=== PATIENT | female | born 1960 | race Caucasian/White ===

== ENCOUNTER 2016-12-04 16:30 | Emergency (ER) | payer OTHER, MEDICARE ==
[~2016-12-04] VITALS: Ht 172.7 cm; Wt 70.3 kg
[~2016-12-04 16:30] MED LIST: ABILIFY 2MG2 MG PO; AUGMENTIN 875 M1 TAB PO; CEPHALEXIN500 M1 PO; CIPRO 500MG (E500 MG PO; DOXYCYCLINE HY100 M2 PO; HYDROXYZINE HCL25 M2 PO; LINDANE60 M1; LINDANE60 M1 TOP; LITHIUM CARBON300 M3 PO; MEDROL4 M2 PO; MOTRIN800 MG PO; NAPROXEN500 M1 PO; NEURONTIN300 M1 PO; PANTOPRAZOLE SO40 M1 PO; PANTOPRAZOLE SO40 MG PO; PERCOCET 325 MG1 TA2 PO; PERMETHRIN60 GM TOP; PROPRANOLOL HCL10 MG PO; PROPRANOLOL HCL20 M1 PO; QUETIAPINE FUMA25 MG PO; SEROQUEL25 M1 PO; TOPIRAMATE100 MG PO; TOPIRAMATE50 M1 PO; TRAMADOL50 MG PO; TYLENOL #31 TAB PO; VICODIN5-300 PO; ZOFRAN ODT4 MG PO; ZOLOFT100 M1 PO
--- NOTE | 2016-12-04 16:51 | ED INFLUENZA/URI COMPLAINT ---
History of Present Illness General Chief Complaint: Upper Respiratory Sx/Fever Stated Complaint: FLU SYMPTOMS Source: patient Exam Limitations: no limitations Vital Signs & Intake/Output Vital Signs & Intake/Output Vital Signs Date Time Temp Pulse Resp B/P Pulse O2 O2 Flow FiO2 Ox Delivery Rate 12/04 1738 98.6 98 18 130/70 98 Room Air 12/04 1653 98 Room Air 12/04 1635 98.5 110 16 138/96 97 Room Air Allergies Coded Allergies: buspirone (From BUSPAR) (Intermediate, PER PT UNKNOWN STATES DOES NOT EXPERIENCE DYSPNEA 10/07/16) Reconcile Medications Aripiprazole 2 MG TABLET 0.25 TAB PO DAILY MENTAL HEALTH (Reported) Azithromycin (Zithromax) 250 MG TABLET 1 DP PO AD bronchitis 1 tab daily x 4 days Clonidine HCl 0.1 MG TABLET 1 TAB PO TID PRN UNKNOWN (Reported) Diphenhydramine HCl 25 MG CAPSULE 1-2 CAP PO AD ALLERGIES/SLEEP (Reported) Guaifen/Phenyleph/Acetaminophn (Mucinex Fast-Max Cold-Sinus Tb) 200 MG-5 MG-325 MG TABLET 2 CAP PO Q4H PRN COLD & SINUS (Reported) Ibuprofen 600 MG TABLET 1 TAB PO Q6 PRN PAIN with food Methimazole 10 MG TABLET 1 TAB PO DAILY THYROID (Reported) Neomycn/Baci Zn/Pmyx Bs/Pramox (Triple Antibioti-Pain Rlf Oint) 3.5-10K-10 OINT...G. 1 BENJAMIN TOP AD AFFECTED AREA(S) (Reported) Pantoprazole Sodium 40 MG TABLET.DR 1 TAB PO DAILY GI (Reported) Propranolol HCl 20 MG TABLET 1 TAB PO BID THYROID (Reported) Quetiapine Fumarate 200 MG TABLET 1 TAB PO QPM SLEEP HELP (Reported) Quetiapine Fumarate (Seroquel) 50 MG TABLET 0.5-1 TAB PO TID PRN MENTAL HEALTH (Reported) Topiramate 50 MG TABLET 1 TAB PO TID MIGRAINES (Reported) Triage Note: PT STATES SHE HAS FLU LIKE S/S SINCE YESTERDAY. PT STATES SHE HAS ACHES, COLD AND SORE THROAT AND IS FEELING DIZZY Triage Nurses Notes Reviewed? yes Onset: Abrupt Duration: day(s): (2) Timing: multiple episodes today Severity: moderate No Modifying Factors: none Associated Symptoms: cough, sore throat, BODY PAIN, DYSPNEA HPI: This is a 56-year-old female presents to the ER with chief complaint of congestion, sore throat, cough, body aches and pains for the past 2 days. She states she was also moving and states that her back pain may be secondary to that. Denies any fevers. She is a daily smoker. Didn't is unsure about sick contacts. She took some [id number] allergy medications without any relief. She is coughing up green sputum. Past History Travel History Traveled to [place] past 21 day No Medical History Any Pertinent Medical History? 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 No Review of Systems Review of Systems Constitutional: Reports: chills. Denies: fever. EENTM: Reports: no symptoms. Respiratory: Reports: cough, sputum production. Denies: short of breath. Cardiovascular: Denies: chest pain, palpitations. GI: Reports: no symptoms. Genitourinary: Reports: no symptoms. Musculoskeletal: Reports: back pain, muscle pain. Skin: Reports: no symptoms. Neurological/Psychological: Reports: no symptoms. Hematologic/Endocrine: Denies: bruising, bleeding, polyuria, polydipsia. Immunologic/Allergic: Denies: splenectomy. All Other Systems: Reviewed and Negative Physical Exam Physical Exam General Appearance: well developed/nourished, alert, awake Head: atraumatic, normal appearance Eyes: Bilateral: normal appearance, PERRL, EOMI. Ears, Nose, Throat: moist mucous membrane, hearing grossly normal, Tympanic normal, pharyngeal erythema Neck: normal inspection, supple, full range of motion Respiratory: normal breath sounds, chest non-tender Cardiovascular: regular rate/rhythm Peripheral Pulses: 2+ radial (R), 2+ radial (L) Gastrointestinal: soft Neurologic/Psych: no motor/sensory deficits, awake, alert, oriented x 3 Skin: intact, normal color, warm/dry Core Measures Severe Sepsis Present: No Septic Shock Present: No Progress Differential Diagnosis: influenza, pneumonia, pharyngitis Plan of Care: Orders Procedure Date/time Status THROAT CULTURE W/QUICK STREP 12/04 1657 Active URINALYSIS 12/04 164 Complete RAPID VIRAL INFLUENZA A 12/04 1638 Complete Laboratory Tests 12/04/16 1648: Urinalysis LIGHT H, Urine Color YEL, Urine Clarity HAZY H, Urine pH 6.5, Ur Specific [place] 1.010, Urine Protein NEG, Urine Ketones NEG, Urine Nitrite NEG, Urine Bilirubin NEG, Urine Urobilinogen 0.2, Ur Leukocyte Esterase SMALL H, Ur Microscopic SEDIMENT EXAMINED, Urine RBC RARE, Urine WBC 1-3 H, Ur Epithelial Cells MOD H, Urine Mucus FEW, Urine Hemoglobin TRACE-INTACT, Urine Glucose NEG Initial ED EKG: none Departure Departure Time of Disposition: 172 Disposition: HOME OR SELF CARE Condition: Stable Clinical Impression Primary Impression: Bronchitis Referrals: EVI HUERTA,MYL (PCP/Family) Additional Instructions: Take the azithromycin as directed. Motrin as needed for pain/fever. Follow up with your doctor in the office. Stop smoking. Departure Forms: Customer Survey General Discharge Information Prescriptions: Current Visit Scripts Azithromycin (Zithromax) 1 DP PO AD #4 TAB 1 tab daily x 4 days Ibuprofen 1 TAB PO Q6 PRN PAIN #30 TAB with food
[2016-12-04] MEDS ORDERED: ZITHROMAX250 M2 PO (17:28)
[2016-12-04] MEDS ORDERED: IBUPROFEN600 M1 PO (17:28)
[2016-12-04 17:38] VITALS: BP 130/70
== END 2016-12-04 17:39 ==
LOC: ERH 16:30
DX: J40 Bronchitis, not specified as acute or chronic (principal); Z72.0 Tobacco use
CPT/HCPCS: 81001; 87804; 87804-59

== ENCOUNTER 2016-12-08 11:13 | Emergency (ER) | payer OTHER, MEDICARE ==
[~2016-12-08] VITALS: Ht 172.7 cm; Wt 70.3 kg
[~2016-12-08 11:13] MED LIST changes: +IBUPROFEN600 M1 PO; +ZITHROMAX250 M2 PO
[2016-12-08 11:22] VITALS: BP 159/100
[2016-12-08] MEDS ORDERED: SEROQUEL50 M1 PO (12:36)
[2016-12-08] MEDS ORDERED: QUETIAPINE FUM100 M1 PO (12:36)
[2016-12-08] MEDS ORDERED: CLONIDINE HCL0.1 MG PO (12:37)
[2016-12-08] MEDS ORDERED: METHIMAZOLE10 M1 PO (12:38)
[2016-12-08] MEDS ORDERED: ARIPIPRAZOLE2 MG PO (12:38)
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
== END 2016-12-08 13:09 ==
LOC: ERH 11:13
DX: S60.411A Abrasion of left index finger, initial encounter (principal); X58.XXXA Exposure to other specified factors, initial encounter
CPT/HCPCS: 99282

== ENCOUNTER 2016-12-11 15:14 | Emergency (ER) | payer OTHER, MEDICARE ==
[~2016-12-11 15:14] MED LIST changes: +ARIPIPRAZOLE2 MG PO; +CLONIDINE HCL0.1 MG PO; +METHIMAZOLE10 M1 PO; +QUETIAPINE FUM100 M1 PO; +SEROQUEL50 M1 PO
--- NOTE | 2016-12-11 15:28 | ED DYSPNEA/ASTHMA COMPLAINT ---
See Addendum History of Present Illness General Chief Complaint: Psychiatric Related Complaint Stated Complaint: PARANOIA Source: patient, old records, EMS Exam Limitations: no limitations Vital Signs & Intake/Output Vital Signs & Intake/Output Vital Signs Date Time Temp Pulse Resp B/P Pulse O2 O2 Flow FiO2 Ox Delivery Rate 12/11 1730 Room Air 12/11 1552 98.2 100 16 151/95 94 Room Air Allergies Coded Allergies: buspirone (From BUSPAR) (Intermediate, PER PT UNKNOWN STATES DOES NOT EXPERIENCE DYSPNEA 10/07/16) Reconcile Medications Aripiprazole 2 MG TABLET 0.25 TAB PO DAILY MENTAL HEALTH (Reported) Azithromycin (Zithromax) 250 MG TABLET 1 DP PO AD bronchitis 1 tab daily x 4 days Clonidine HCl 0.1 MG TABLET 1 TAB PO TID PRN UNKNOWN (Reported) Diphenhydramine HCl 25 MG CAPSULE 1-2 CAP PO AD ALLERGIES/SLEEP (Reported) Guaifen/Phenyleph/Acetaminophn (Mucinex Fast-Max Cold-Sinus Tb) 200 MG-5 MG-325 MG TABLET 2 CAP PO Q4H PRN COLD & SINUS (Reported) Ibuprofen 600 MG TABLET 1 TAB PO Q6 PRN PAIN with food Methimazole 10 MG TABLET 1 TAB PO DAILY THYROID (Reported) Neomycn/Baci Zn/Pmyx Bs/Pramox (Triple Antibioti-Pain Rlf Oint) 3.5-10K-10 OINT...G. 1 BEN[place]AMIN TOP AD AFFECTED AREA(S) (Reported) Pantoprazole Sodium 40 MG TABLET.DR 1 TAB PO DAILY GI (Reported) Propranolol HCl 20 MG TABLET 1 TAB PO BID THYROID (Reported) Quetiapine Fumarate 200 MG TABLET 1 TAB PO QPM SLEEP HELP (Reported) Quetiapine Fumarate (Seroquel) 50 MG TABLET 0.5-1 TAB PO TID PRN MENTAL HEALTH (Reported) Topiramate 50 MG TABLET 1 TAB PO TID MIGRAINES (Reported) Core Measure Meds Pre-Hospital antibiotics Triage Note: PT BIBA FOR PARANOIA AND +AH/VH. PT CALM AND COOPERATIVE. PER EMS, PT HAS SHINGLES ON HER UPPER LIP. Triage Nurses Notes Reviewed? yes Onset: Just prior to arrival Duration: day(s):, constant, continues in ED Timing: recent history Severity: moderate Activities at Onset: emotional stress Prior Episodes/Possible Cause: unknown cause Associated Symptoms: anxiety, insomnia, loss of appetite LMP (ages 10-50): post menopausal : No Patient currently breastfeeds: No HPI: Patient complains of being depressed and scared of roommate reportedly entering her room. She also has insomnia loss appetite and hears voices. She denies fever chills nausea vomiting diarrhea abdominal pain chest pain chest breath headache dysuria bleeding suicidal ideation homicidal ideation. Past History Medical History Any Pertinent Medical History? 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 No Review of Systems Review of Systems Constitutional: Reports: no symptoms. EENTM: Reports: no symptoms. Respiratory: Reports: no symptoms. Cardiovascular: Reports: no symptoms. GI: Reports: no symptoms. Genitourinary: Reports: no symptoms. Musculoskeletal: Reports: no symptoms. Skin: Reports: see HPI, rash. Neurological/Psychological: Reports: see HPI, anxiety, confusion. Hematologic/Endocrine: Reports: no symptoms. Immunologic/Allergic: Reports: no symptoms. All Other Systems: Reviewed and Negative Physical Exam Physical Exam General Appearance: well developed/nourished, alert, awake, anxious, mild distress Head: atraumatic, normal appearance Eyes: Bilateral: normal appearance, PERRL, EOMI. Ears, Nose, Throat: normal pharynx, normal ENT inspection Neck: normal inspection, supple, full range of motion, no midline tenderness Respiratory: normal breath sounds, chest non-tender, no respiratory distress, quiet respiration, lungs clear Cardiovascular: regular rate/rhythm, normal peripheral pulses, norml femoral pulses equa Peripheral Pulses: 4+ carotid (R), 4+ carotid (L) Gastrointestinal: normal bowel sounds, soft, non-tender, no organomegaly Extremities: normal inspection, normal capillary refill, normal range of motion, no edema Neurologic/Psych: no motor/sensory deficits, awake, alert, oriented x 3, digital production artist II- XII nml as tested Skin: intact, normal color, warm/dry, rash, patches of erythematous rash on skin on upper lip philtrum area Lymphatic: no anterior cervical gee Core Measures ACS in differential dx? No Severe Sepsis Present: No Septic Shock Present: No Progress Differential Diagnosis: psychosis depression Plan of Care: Orders Procedure Date/time Status Regular Diet 12/12 D Active Patient Safety Monitor 12/11 152 Active URINE DRUG SCREEN FOR ER ONLY 12/11 152 Complete URINALYSIS 12/11 152 Complete LITHIUM 12/11 152 Complete ETHANOL 12/11 152 Complete COMPREHENSIVE METABOLIC PANEL 12/11 152 Complete CBC WITHOUT DIFFERENTIAL 12/11 152 Complete ED CRISIS PSYCH CONSULT 12/11 1526 Active Current Medications Sig/Martin Start time Last Medication Dose Stop Time Status Admin Omeprazole 40 MG DAILY AC 12/12 0700 UNVr (Prilosec) 12/12 07 Propranolol HCl 20 MG BID 12/11 220 UNVr (Inderal 20 MG 12/12 1001 Tablet) [place] Carbonate 300 MG 0800,12/11 UNVr ([place] Carbonate) 12/12 2000 Diphenhydramine HCl 25 MG AT BEDTIME PRN 12/11 1800 UNVr (Benadryl) 12/11 180 Ibuprofen 600 MG 4 TIMES/DAY PRN 12/11 1800 UNVr (Motrin) 12/12 220 Topiramate 50 MG TID 12/11 1755 UNVr (Topamax) 12/12 1601 Quetiapine Fumarate 50 MG TID 12/11 1754 UNVr (SEROquel) 12/12 220 Clonidine 0.1 MG TID 12/11 175 UNVr (Catapres) 12/12 220 Laboratory Tests 12/11/16 1610: Urine Opiates Screen < 100.00, Methadone Screen 57, Barbiturate Screen < 60, Ur Phencyclidine Scrn 7.70, Amphetamines Screen < 100, U Benzodiazepines Scrn < 85, Urine Cocaine Screen < 50, Urine Cannabis Screen < 5.00, Urine Color YEL, Urine Clarity CLEAR, Urine pH 6.0, Ur Specific [place] 1.010, Urine Protein NEG, Urine Ketones NEG, Urine Nitrite NEG, Urine Bilirubin NEG, Urine Urobilinogen 0.2, Ur Leukocyte Esterase NEG, Ur Microscopic EXAM NOT REQUIRED, Urine Hemoglobin NEG, Urine Glucose NEG 12/11/16 1541: Anion Gap 9, Estimated GFR 47 L, BUN/Creatinine Ratio 13.3, Glucose 74, Calcium 9.6, Total Bilirubin 0.6, AST 26, ALT 34, Alkaline Phosphatase 229 H, Total Protein 6.7, Albumin 3.9, Globulin 2.8, Albumin/Globulin Ratio 1.4, CBC w Diff NO MAN DIFF REQ, RBC 4.69, MCV 84.4, MCH 27.7, RDW 23.5 H, MPV 8.8, Gran % 62.2 , Lymphocytes % 32.4, Monocytes % 4.0, Eosinophils % 0.2, Basophils % 1.2, Absolute Granulocytes 4.6, Absolute Lymphocytes 2.4, Absolute Monocytes 0.3, Absolute Eosinophils 0, Absolute Basophils 0.1, PUBS MCHC 32.8 L, [place] 0.4 L, Serum Alcohol < 10.0 Initial ED EKG: none Hand-Off Endorsed To: JE HUERTA,ANGÉLICA Prieto Endorsed Time: 1899 Pending: other (re eval in AM, female prison) Departure Departure Disposition: STILL A PATIENT Condition: Stable Clinical Impression Primary Impression: Bipolar disorder Qualifiers: Active/Remission status: currently active Current bipolar episode type: depressed Current episode severity: unspecified Qualified Code: F31.30 - Bipolar disorder, current episode depressed, mild or moderate severity, unspecified Referrals: EVI HUERTA,MYYolette (PCP/Family) Departure Forms: Customer Survey General Discharge Information Critical Care Note Critical Care Note Critical Care Time: non-applicable
[2016-12-11 16:03] LABS: ABSOLUTE BASOPHIL COUNT 0.1 /CUMM (0.0-0.2); ABSOLUTE EOSINOPHIL COUNT 0 /CUMM (0.0-0.7); ABSOLUTE GRANULOCYTE CT 4.6 /CUMM (1.4-6.5); ABSOLUTE LYMPH COUNT 2.4 /CUMM (1.2-3.4); ABSOLUTE MONOCYTE COUNT 0.3 /CUMM (0.10-0.60); BASOPHIL % 1.2 % (0.0-2.0); EOSINOPHIL % 0.2 % (0-5); GRANULOCYTE % 62.2 % (42.2-75.2); HEMATOCRIT 39.6 % (37-47); MEAN CORPUSCULAR HGB 27.7 PG (27.0-31.0); MEAN CORPUSCULAR HGB CONC 32.8 G/DL (33.0-37.0); MEAN CORPUSCULAR VOLUME 84.4 FL (81.0-99.0); MEAN PLATELET VOLUME 8.8 FL (7.4-10.4); PLATELET COUNT 250 /CUMM (130-400); RBC DISTRIBUTION WIDTH 23.5 % (11.5-14.5); RED BLOOD CELL CT 4.69 /CUMM (4.20-5.40); WHITE BLOOD CELL COUNT 7.4 /CUMM (4.8-10.8)
[2016-12-11 16:28] LABS: LITHIUM 0.4 mmol/L (0.6-1.2)
[2016-12-11] MEDS ORDERED: TRIPLE ANTIBIOT28 G1 TOP (16:37)
[2016-12-11] MEDS ORDERED: DIPHENHYDRAMINE25 M4 PO (16:39)
[2016-12-11] MEDS ORDERED: MUCINEX FAST-M1 EA12 PO (16:39)
[2016-12-11] MEDS ORDERED: PANTOPRAZOLE SO40 M1 PO (16:41)
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
[2016-12-12 09:10] VITALS: BP 135/95
== END 2016-12-12 09:12 ==
LOC: ERH 15:14
PROVIDERS: Emergency Medicine
DX: F31.9 Bipolar disorder, unspecified (principal)
CPT/HCPCS: 80307; 81003; G0463; G0480

== ENCOUNTER 2017-02-01 14:33 | Emergency (ER) | payer OTHER, MEDICARE ==
[~2017-02-01 14:33] MED LIST changes: +DIPHENHYDRAMINE25 M4 PO; +MUCINEX FAST-M1 EA12 PO; +TRIPLE ANTIBIOT28 G1 TOP
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
[2017-02-01] MEDS ORDERED: AMOX-CLAV 875-1 EACH PO (17:05)
[2017-02-01] MEDS ORDERED: LITHIUM CARBON300 M6 PO (17:05)
[2017-02-01] MEDS ORDERED: SERTRALINE HCL100 MG PO (17:06)
[2017-02-01] MEDS ORDERED: GABAPENTIN300 M2 PO (17:06)
[2017-02-01] MEDS ORDERED: LOSARTAN POTASS50 M1 PO (17:07)
[2017-02-01] MEDS ORDERED: VITAMIN D2000 UNIT PO (17:07)
[2017-02-01] MEDS ORDERED: MULTIVITAMINS1 EAC9 PO (17:07)
--- NOTE | 2017-02-01 17:13 | RADIOLOGY REPORT ---
EXAMINATION: XR LUMBOSACRAL SPINE CLINICAL INFORMATION: Back pain. COMPARISON: CT 09/15/2015 TECHNIQUE: 4 views of the lumbosacral spine were obtained. FINDINGS: Severe L5-S1 degenerative disc disease. Moderate degenerative disc disease at L3-L4 with an inferior endplate erosion or Schmorl's node of L3 with surrounding sclerosis. Slight L3-L4 retrolisthesis. There is a superior endplate fracture of L1 with slight depression anteriorly which appears chronic due to the presence of sclerosis. IMPRESSION: There is a superior endplate fracture of L1 with mild depression anteriorly which appears chronic. However, this is new when compared with 09/15/2015. Correlate for tenderness in this location. Moderate L3-L4 degenerative disc disease with L3 inferior endplate Schmorl's node or chronic erosion and surrounding sclerosis. Minimal retrolisthesis. Severe L5-S1 degenerative disc disease.
[2017-02-01] MEDS ORDERED: HYDROCODON-ACE1 EAC2 PO (17:40)
[2017-02-01 17:45] VITALS: BP 140/80
== END 2017-02-01 17:49 ==
LOC: ERH 14:33
DX: S32.010A Wedge compression fracture of first lumbar vertebra, initial encounter for closed fracture (principal); V89.2XXA Person injured in unspecified motor-vehicle accident, traffic, initial encounter; W00.0XXA Fall on same level due to ice and snow, initial encounter; Y93.9 Activity, unspecified; Y92.9 Unspecified place or not applicable
CPT/HCPCS: 72110

== ENCOUNTER 2017-02-14 13:17 | Emergency (ER) | payer OTHER, MEDICARE ==
[~2017-02-14] VITALS: Ht 172.7 cm; Wt 72.6 kg
[~2017-02-14 13:17] MED LIST changes: +AMOX-CLAV 875-1 EACH PO; +GABAPENTIN300 M2 PO; +HYDROCODON-ACE1 EAC2 PO; +LITHIUM CARBON300 M6 PO; +LOSARTAN POTASS50 M1 PO; +MULTIVITAMINS1 EAC9 PO; +SERTRALINE HCL100 MG PO; +VITAMIN D2000 UNIT PO
[2017-02-14 13:25] VITALS: BP 169/95
== END 2017-02-14 13:27 | disposition admitted as inpatient to this hospital (09) ==
LOC: ERH 13:17
DX: S60.212A Contusion of left wrist, initial encounter (principal)

== ENCOUNTER 2017-02-28 14:06 | Inpatient (IN) | payer OTHER, MEDICARE ==
[~2017-02-28] VITALS: Ht 167.6 cm; Wt 65.4 kg
--- NOTE | 2017-02-28 14:09 | NUR ---
SECURITY AT BEDSIDE FOR WANDING PT CHANGED INTO BLUE SCRUBS
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
--- NOTE | 2017-02-28 14:25 | NUR ---
YANI MURGUIA AT BEDSIDE
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
--- NOTE | 2017-02-28 14:44 | ED PSYCHIATRIC COMPLAINT ---
History of Present Illness General Chief Complaint: Psychiatric Related Complaint Stated Complaint: PSYCH EVAL Source: patient, old records, EMS, transportation certificate and evaluation in a hospital for psychiatric disablities Exam Limitations: no limitations Vital Signs & Intake/Output Vital Signs & Intake/Output Vital Signs Date Time Temp Pulse Resp B/P B/P Pulse O2 O2 Flow FiO2 Mean Ox Delivery Rate 03/01 1645 98.4 82 16 130/90 97 Room Air 05/ 1630 Room Air / 1459 82 16 130/90 97 Room Air 03/01 1209 96.7 76 16 131/96 97 Room Air 03/01 1159 Room Air 03/01 0921 97.5 82 20 169/99 05/ 0911 97.5 82 20 169/99 99 Room Air / 0630 97.7 78 18 168/96 96 Room Air 02/28 2237 98.4 84 16 136/70 94 Room Air 02/28 2026 Room Air 02/28 1732 98.7 95 20 130/69 94 Room Air Allergies Coded Allergies: buspirone (From Posto7) (Intermediate, PER PT UNKNOWN STATES DOES NOT EXPERIENCE DYSPNEA 10/07/16) Reconcile Medications Amoxicillin/Clavulanate Potass (Amox-Clav 875-125 MG Tablet) 875 MG-125 MG TABLET 1 TAB PO BID ANTIBIOTIC (Reported) Aripiprazole 2 MG TABLET 0.25 TAB PO DAILY MENTAL HEALTH (Reported) Cholecalciferol (Vitamin D3) (Vitamin D) 2,000 UNIT CAPSULE 1 CAP PO DAILY SUPPLEMENT (Reported) Gabapentin 300 MG CAPSULE 1 CAP PO TID ANXIETY (Reported) Poteau Carbonate (Poteau Carbonate ER) 300 MG TABLET.ER 1 TAB PO DAILY MENTAL HEALTH (Reported) Losartan Potassium (Unknown Strength) TABLET (Unknown Dose) UNKNOWN (Reported ) Methimazole 10 MG TABLET 1 TAB PO DAILY THYROID (Reported) Multiple Vitamin (Multivitamins) 1 EACH TABLET 1 TAB PO DAILY SUPPLEMENT ( Reported) Pantoprazole Sodium 40 MG TABLET.DR 1 TAB PO DAILY GI (Reported) Propranolol HCl 20 MG TABLET 1 TAB PO BID THYROID (Reported) Quetiapine Fumarate 100 MG TABLET 1 TAB PO QPM SLEEP (Reported) Quetiapine Fumarate (Seroquel) 50 MG TABLET 1 TAB PO TID MENTAL HEALTH ( Reported) Sertraline HCl 100 MG TABLET 2 TAB PO DAILY MENTAL HEALTH (Reported) Topiramate 50 MG TABLET 1 TAB PO TID MIGRAINES (Reported) Triage Note: PT BIBA FOR PSYCH EVAL. PT SEEN AT [facility] THIS MORNING. 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 PT WAS SEEN AT HER HOME BY [facility] TODAY. PT DENIES SI OR HI. Triage Nurses Notes Reviewed? yes HPI: Patient is a 56-year-old female with past medical history of bipolar disorder brought in by ambulance on a emergency transportation certificate and evaluation in the hospital for psychiatric disabilities form. Patient's delinquency prevention social worker called 911 with concerns that patient is delusional and noncompliant with her medications. Patient reports that she believes that "someone is messing with her". She awoke yesterday with 5 pills scattered in her bed that she did not place there. Patient also reports 10 hours missing from her pocket book when she went to buy coffee today. Patient was changing the locks on her door due to the concern that someone was breaking into her apartment. When she told her delinquency prevention social worker this she reports that her delinquency prevention social worker began arguing with her and then called 911. Patient reports that she has been compliant with her medications. Patient reports she has been clean from alcohol and drugs for the past 4 years. Patient reports that she has been sleeping normally, eating and drinking normally and completing her activities of daily living without a problem. Patient denies suicidal or homicidal ideation. Patient denies hallucinations. (BETO HUYNH) Past History Medical History Any Pertinent Medical History? 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 No (BETO HUYNH) Review of Systems Review of Systems Constitutional: Denies: chills, fever. EENTM: Denies: visual changes. Respiratory: Denies: cough, short of breath. Cardiovascular: Denies: chest pain. GI: Denies: abdominal pain, diarrhea, vomiting. Genitourinary: Reports: no symptoms. Musculoskeletal: Reports: back pain (since back fracture 1.5 months). Neurological/Psychological: Reports: see HPI. Hematologic/Endocrine: Reports: no symptoms. Immunologic/Allergic: Reports: no symptoms. (BETO HUYNH) Physical Exam Physical Exam General Appearance: well developed/nourished, alert, awake Head: atraumatic, normal appearance Eyes: Bilateral: normal appearance, PERRL, EOMI. Ears, Nose, Throat: normal pharynx, normal ENT inspection, hearing grossly normal Neck: normal inspection, supple, full range of motion Respiratory: normal breath sounds, chest non-tender, no respiratory distress, lungs clear Cardiovascular: regular rate/rhythm Gastrointestinal: soft, non-tender Extremities: normal range of motion, no signs of trauma Neurological/Psychiatric: no motor/sensory deficits, awake, alert, calm, slat pickler II- XII nml as tested Thoughts/Hallucinations: paranoid Skin: normal color, warm/dry SAD PERSONS Done? patient not suicidal, crisis consultation obtained (BETO HUYNH) Progress Differential Diagnosis: drug intoxication, drug overdose, drug withdrawal, electrolyte abnormality, IC hem/mass/tumor, mood disorder, personality disorder, psychosis Plan of Care: Orders Procedure Date/time Status Regular Diet 03/01 B Active Patient Safety Monitor 03/01 1324 Active Admit to inpatient psych 03/01 1126 Active Intake & Output 02/28 1502 Active Current Medications Sig/Martin Start time Last Medication Dose Stop Time Status Admin Quetiapine Fumarate 100 MG QPM 03/01 2200 AC (Seroquel) Aripiprazole 0.5 MG DAILY 03/01 1000 CAN (Abilify) Gabapentin 300 MG TID 03/01 1000 UNVr 03/01 (Neurontin) 1628 Poteau Carbonate 300 MG DAILY 03/01 1000 UNVr 03/01 (Lithobid Slow 0921 Release) Multivitamins 1 TAB DAILY 03/01 1000 AC Therapeutic (Theragran-M Vitamins Tabs) Propranolol HCl 20 MG BID 03/01 1000 AC 03/01 (Inderal 20 MG 0921 Tablet) Quetiapine Fumarate 50 MG TID 03/01 1000 AC 03/01 (SEROquel) 1628 Sertraline HCl 200 MG DAILY 03/01 1000 AC 03/01 (Zoloft) 0921 02/28/2017 8:51:03 PM: Patient evaluated by rib cloth knitter. Plan for patient to remain in the emergency department overnight and be reevaluated in the morning (BETO HUYNH) Hand-Off Endorsed To: SAMIRA LA MD Endorsed Time: 0100 Pending: consult (crisis re-evaluation) (BETO HUYNH) Departure Departure Disposition: STILL A PATIENT Condition: Stable Clinical Impression Primary Impression: Bipolar disorder Referrals: EVI HUERTAMYYolette (PCP/Family) Departure Forms: Customer Survey General Discharge Information (BETO HUYNH) Psych Admission Note Psychiatric Admission: I have seen and evaluated DOM RAE. I have also reviewed all the pertinent lab results and diagnostic results. DOM RAE will be admitted to our inpatient Psychiatric unit for treatment and care. PA/ANALYTICAL LAB TECHNICIAN Co-Sign Statement Statement: ED Attending supervision documentation- x I saw and evaluated the patient. I have also reviewed all the pertinent lab results and diagnostic results. I agree with the findings and the plan of care as documented in the PA's/ANALYTICAL LAB TECHNICIAN's documentation. [] I have reviewed the ED Record and agree with the PA's/ANALYTICAL LAB TECHNICIAN's documentation. [] Additions or exceptions (if any) to the PAs/ANALYTICAL LAB TECHNICIAN's note and plan are summarized below: [] (STEPHANY RICHTER MD) as documented in the PA's/ANALYTICAL LAB TECHNICIAN's documentation. [] I have reviewed the ED Record and agree with the PA's/ANALYTICAL LAB TECHNICIAN's documentation. [] Additions or exceptions (if any) to the PAs/ANALYTICAL LAB TECHNICIAN's note and plan are summarized below: [] (STEPHANY RICHTER MD)
--- NOTE | 2017-02-28 14:52 | NUR ---
LABS DRAWN AND SEN BY THIS MST BLUE, SST, LAV
--- NOTE | 2017-02-28 14:59 | ED PSY CRISIS COLLATERAL NOTE ---
Collateral Note Collateral Note Family/Inform/Pamela Contacts: Shari of [facility] called to inform that Pt was seen by mobile crisis and sent to the ED on a SWEC. Pt has not been compliant with her tx or meds at [facility]. Sometimes she will take extra meds and other time not enough. Pt has been increasingly paranoid. She calls the police frequently stating that people are breaking into her home and stealing things. She says that people are after her and left a shovel in her yard to threaten her.Police told mobile crisis that if pt does not go to the hospital they will arrest her for false reports. Pt also thinks she has bugs and uses lice shampoo, but no bugs have been found. Pt lives in supervised living and was kicked out of her last place due to her delusions.Pt was hospitalized in Sep for SI.
[2017-02-28 15:02] LABS: ABSOLUTE BASOPHIL COUNT 0.1 /CUMM (0.0-0.2); ABSOLUTE EOSINOPHIL COUNT 0.1 /CUMM (0.0-0.7); ABSOLUTE GRANULOCYTE CT 4.4 /CUMM (1.4-6.5); ABSOLUTE LYMPH COUNT 1.9 /CUMM (1.2-3.4); ABSOLUTE MONOCYTE COUNT 0.3 /CUMM (0.10-0.60); BASOPHIL % 1.1 % (0.0-2.0); EOSINOPHIL % 1.4 % (0-5); GRANULOCYTE % 65.6 % (42.2-75.2); HEMATOCRIT 40.3 % (37-47); MEAN CORPUSCULAR HGB 31.6 PG (27.0-31.0); MEAN CORPUSCULAR HGB CONC 33.9 G/DL (33.0-37.0); MEAN CORPUSCULAR VOLUME 93.4 FL (81.0-99.0); MEAN PLATELET VOLUME 9.5 FL (7.4-10.4); PLATELET COUNT 157 /CUMM (130-400); RBC DISTRIBUTION WIDTH 16.4 % (11.5-14.5); RED BLOOD CELL CT 4.32 /CUMM (4.20-5.40); WHITE BLOOD CELL COUNT 6.6 /CUMM (4.8-10.8)
[2017-02-28 15:19] LABS: LITHIUM 0.5 mmol/L (0.6-1.2)
--- NOTE | 2017-02-28 15:45 | NUR ---
PT ASLEEP AT THIS TIME ON RIGHT SIDE. RESPIRATIONS EQUAL AND UNLABORED. SITTER AT DOOR FOR SAFETY.
--- NOTE | 2017-02-28 17:30 | NUR ---
PT RESTING ON BED IN ROOM 14. PT CALM AND COOPERATIVE. SITTER AT DOOR.
--- NOTE | 2017-02-28 19:05 | NUR ---
PT WATCHING TV IN ROOM 14, CALM AND COOPERATIVE. SITTER AT DOOR. PT AWAITS CRISIS CONSULT.
--- NOTE | 2017-02-28 20:05 | NUR ---
PT MEDICATED WITH SEROQUEL 50MG AND NEURONTIN 300MG PO PER EMAR. PT CALM AND COOPERATIVE, WATCHING TV IN ROOM 14. SITTER AT DOOR.
--- NOTE | 2017-02-28 20:25 | NUR ---
CRISIS AT BEDSIDE
--- NOTE | 2017-02-28 20:40 | NUR ---
Crisis evaluation completed, pt is a hold over and bedsearch. There are no beds on [facility] at this time.
--- NOTE | 2017-02-28 21:04 | NUR ---
PT MEDICATED WITH TOPAMAX 50MG PO AND NICODERM 21MG PATCH APPLIED TO UPPER LEFT ARM. PT REMAINS CALM AND COOPERATIVE. SITTER AT DOOR.
--- NOTE | 2017-02-28 21:59 | ED PSYCH CRISIS CONSULTATION ---
Crisis Consult Basic Assessment Date of Consult: 02/28/17 Responsible Person/Accompanied By: Self Insurance Authorization: Insurance #1: Insurance name: MEDICARE A Phone number: Policy number: [id number] Group number: Authorization number: ED Provider: Patient's ED Provider: BETO HUYNH Primary Care Physician: Patient's PCP: SARAH STEVE MD PCP's Current Psychiatrist: Tate Matthews MD Chief Complaint: Psychiatric Related Complaint Patient's Quote: "I don't feel safe with the lock on mydoor, I'm on the first floor" Present Illness: Pt is a 56 year old female BIBA on a PEC from [facility] Mobile Crisis Team. Pt states " my corrections caseworker made me come here because I told them I 'm gonna put locks on the door". "A couple of girls came to my house and grilled me 50 questions, I told them I don't feel safe with the lock I have on the door". Pt was alert, she knew the month and date and who the president is at this time. Pt states "I'm depressed". Pt denies hearing or seeing things. Pt denies SI/ HI. Pt became very tearful, but had a blank stare when she described that the police threatened to arrest her for making false statements. Pt admits she calls the police often to tell them someone has broken into her apartment. Pt stated "someone broke through the ceiling, I had to put a blanket up there". Pt believed someone broke into her concrete ceiling according to the PEC. Pt reports she lived in this new apartment for 2 months and prior to moving into this apartment at [address] [place] [address] [address], "I was homeless". Pt's reaction to the Mobile Crisis Team coming out to her apartment was this "where were they when I was sleeping on the streets in [place] she said tearfully". Also, pt confirmed that she has changed her phone number multiple times, according to her she had to do this because someone from was calling and harrassing her. Pt's presentation was evidence of intense fear and paranoid thoughts. Pt repeatedly said she felt unsafe and believed someone had broken into her apartment via the ceiling. Moreover, pt's plan was that she wanted to change the locks on her door or even put a chain on the door because she felt the locks were not secure enough on her apartment door. Pt admit she was diagnosed with Bipolar Disorder and she takes Minster and Zoloft. Pt's prescriber is Connie Santiago APRN at [facility]. Pt reports she has been hospitalized a couple to times here at [facility] for depression. Last hospitalization at [facility] was September, for suicidal ideation and depression. The current PEC states the pt has been noncompliant with medications. Pt denies that she does not take her medications. "I take one Minster she said because of my medical problems". Also, pt states she takes the medication Zoloft. Pt's Utox was negative for substances and ETOH. Patient's Address: [address] [place] [address] Other Phone Number: Who Do You Live With? Patient/Self ([facility]) Family/Informants Interviewed: Collateral information provided by [facility]. Please see Collateral Note. Allergies - Coded Allergies: buspirone (From BUSPAR) (Intermediate, PER PT UNKNOWN STATES DOES NOT EXPERIENCE DYSPNEA 10/07/16) Current Medications - Scheduled Medications Amoxicillin/Clavulanate Potass (Amox-Clav 875-125 MG Tablet) 875 MG-125 MG TABLET 1 TAB PO BID ANTIBIOTIC #20 (Reported) Entered as Reported by INÉS SIEGEL on 02/01/17 1705 Aripiprazole 2 MG TABLET 0.25 TAB PO DAILY MENTAL HEALTH #15 (Reported) Entered as Reported by MADISON CLARK on 12/08/16 1238 Cholecalciferol (Vitamin D3) (Vitamin D) 2,000 UNIT CAPSULE 1 CAP PO DAILY SUPPLEMENT (Reported) Entered as Reported by INÉS SIEGEL on 02/01/17 1707 Gabapentin 300 MG CAPSULE 1 CAP PO TID ANXIETY #45 (Reported) Entered as Reported by INÉS SIEGEL on 02/01/17 1706 Minster Carbonate (Minster Carbonate ER) 300 MG TABLET.ER 1 TAB PO DAILY MENTAL HEALTH #15 (Reported) Entered as Reported by INÉS SIEGEL on 02/01/17 1705 Methimazole 10 MG TABLET 1 TAB PO DAILY THYROID #60 (Reported) Entered as Reported by MADISON CLARK on 12/08/16 1238 Multiple Vitamin (Multivitamins) 1 EACH TABLET 1 TAB PO DAILY SUPPLEMENT ( Reported) Entered as Reported by INÉS SIEGEL on 02/01/17 1707 Pantoprazole Sodium 40 MG TABLET.DR 1 TAB PO DAILY GI (Reported) Entered as Reported by INÉS SIEGEL on 12/11/16 1641 Propranolol HCl 20 MG TABLET 1 TAB PO BID THYROID #180 (Reported) Entered as Reported by INÉS SIEGEL on 10/07/16 1914 Quetiapine Fumarate 100 MG TABLET 1 TAB PO QPM SLEEP (Reported) Entered as Reported by MADISON CLARK on 12/08/16 1236 Quetiapine Fumarate (Seroquel) 50 MG TABLET 1 TAB PO TID MENTAL HEALTH ( Reported) Entered as Reported by MADISON CLARK on 12/08/16 1236 Sertraline HCl 100 MG TABLET 2 TAB PO DAILY MENTAL HEALTH #60 (Reported) Entered as Reported by INÉS SIEGEL on 02/01/17 1706 Topiramate 50 MG TABLET 1 TAB PO TID MIGRAINES #270 (Reported) Entered as Reported by INÉS SIEGEL on 10/07/16 1915 Miscellaneous Medications Losartan Potassium (Unknown Strength) TABLET (Unknown Dose) UNKNOWN #90 ( Reported) Entered as Reported by INÉS SIEGEL on 02/01/17 1707 Laboratory Results: Laboratory Tests 02/28/17 1450: Anion Gap 11, Estimated GFR 52 L, BUN/Creatinine Ratio 10.0, Glucose 72, Calcium 9.3, Total Bilirubin 0.6, AST 18, ALT 25, Alkaline Phosphatase 167 H, Total Protein 6.3, Albumin 3.7, Globulin 2.6, Albumin/Globulin Ratio 1.4, TSH & T3 &Free T4 Intrp 2.170, CBC w Diff NO MAN DIFF REQ, RBC 4.32, MCV 93.4, MCH 31.6 H, RDW 16.4 H, MPV 9.5, Gran % 65.6, Lymphocytes % 28.1, Monocytes % 3.8, Eosinophils % 1.4, Basophils % 1.1, Absolute Granulocytes 4.4, Absolute Lymphocytes 1.9, Absolute Monocytes 0.3, Absolute Eosinophils 0.1, Absolute Basophils 0.1, PUBS MCHC 33.9, Minster 0.5 L, Serum Alcohol < 10.0 02/28/17 1447: Urine Opiates Screen < 100.00, Methadone Screen 49, Barbiturate Screen < 60, Ur Phencyclidine Scrn < 6.00, Amphetamines Screen 120, U Benzodiazepines Scrn < 85, Urine Cocaine Screen < 50, Urine Cannabis Screen < 5.00 (ARIANA TINSLEY,MANASA) Past History Past Medical History Neurological: NONE EENT: NONE Cardiovascular: hypertension, hyperlipidemia Respiratory: NONE Gastrointestinal: NONE Hepatic: NONE Renal: RENAL STONES W/ STENTS Musculoskeletal: NONE Psychiatric: anxiety, bipolar disease, substance abuse (Depakote overdose), PTSD Endocrine: hyperthyroidism Blood Disorders: NONE Cancer(s): skin cancer 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 Current reports of noncompliance with medication treatment. Diagnosis by History: Bipolar Disorder, PTSD Substance Use/Abuse History Drug Use/Abuse Substances Used/Abused No First Use Unknown Last Used 4 years ago. How much used/taken Unknown How often Unknown For how long Unknown Route of use Unknown Substance Abuse Treatment Substance Abuse Treatment Past Substance Abuse TX Yes Inpatient Treatment No Outpatient Treatment Yes Location of Treatment Care Reason for Treatment ETOH Dates of Treatment Unknown Response to Treatment Sobriety for 4 years. (ARIANA TINSLEY,MANASA) Current Mental Status Mental Status Orientation: Place, month & date. Affect: Anxious, Depressed, Lonely, Sad Speech: Soft Neuro-vegetative: Helpless Appearance Appearance- Dress/Hygiene: Clean Behaviors Thought Process: Disorganized Thought Content: Paranoid Memory: WNL Insight: Poor SI/HI Risk Assessment Past Suicidal Ideation/Attempts Yes Current Suicidal Ideation/Att No Past Homicidal Ideation/Att: No Current Homicidal Ideation/Attempts No Degree of Intent: None Danger To: n/a Gravely Disabled: Inability, Lack of Insight, Poor Impulse Control, Poor Judgment Risk Factors: chronic/serious med cond., high anxiety/distress, SA/MH hospitalized, poor impulse control, lives alone Lethality Ratin ED Management Sitter: Yes Restraints: No (MANASA LANE LCSW) DSM5/PS Stressors/Medical Prob Diagnosis' (DSM 5, Stressors, Medical): F32.9 Depressive Disorder Unspecified. F31.81 Bipolar Disorder II & F43.10 PTSD by hx (recent 10/15), Medical Condition Hyperthyroidism, HTN, Hyperlipidemia, Hx of Migraines. Unemployed. Current GAF: 18-20 ([address] LCSW) Departure Disposition Psych Medical Clearance Date: 02/28/17 Medically Cleared at: 0400 Time Started: 0811 Time Ended: 0850 Psychiatrist Consulted: Tate Matthews MD Date Disposition Established: 02/28/17 Time Disposition Established: 0850 Plan for Disposition - Modality: Bed Search Follow-up Appt Date: 03/01/17 Follow-Up Appt Time: 0800 Contact: [facility] Rationale for Disposition: Pt BIBA on PEC from [facility] Mobile Crisis Team. Pt's presented with symptoms of paranoid delusions. Collateral reports indicates pt has been noncompliant with psychotropic medications. Pt unable to function in the community evidenced by her multiple calls to local police and providers. Pt meets criteria for inpatient hospitalization for grave disability. Type of IP Admission: PEC Referrals EVI HUERTA,MYL (PCP/Family) (MANASA LANE LCSW) Disposition Psych Medical Clearance Date: 03/01/17 Medically Cleared at: 0930 Time Started: 0930 Time Ended: 1025 Psychiatrist Consulted: Laura Montoya MD Date Disposition Established: 03/01/17 Time Disposition Established: 1020 Plan for Disposition - Modality: Inpatient Psychiatry Facility: [facility] Rationale for Disposition: Pt presents with increase in delusional and paranoid thinking. She was BIBA on PEC and per her community providers is not her baseline and is non-medication compliant. Pt presents with poor judgement and insight. This administrative underwriter consulted with Dr. Montoya and pt meets criteria for inpatient admission for mood stablization and safety. Type of IP Admission: PEC (BEN TINSLEY,RIANA) Addendum Addendum Pt presents with poor insight and judgement. During re-eval pt's mood became agitated and was tearful. She noted she does not feel safe at home. Per pt, she does not wish to talk about why her providers are concerned. She said she is only here because she put locks on her door. Per providers at [facility], pt has entire bin on her medications in her room that she is not taking, pt talks about bed bugs in the house when exterminators noted no evidence of bed bugs, pt becomes verbally aggressive, and they note an increase in paranoia of people breaking into her apartment as reported by the police department. Per [facility], housing is becoming of concern as the police stated they would arrest her for making false statements. This administrative underwriter consulted with Dr. Montoya and recommends inpatient admission for mood stabilization and safety. (BEN TINSLEY,RIANA)
--- NOTE | 2017-02-28 22:37 | NUR ---
PT ASLEEP AT THIS TIME ON HER RIGHT SIDE. RESPIRATIONS EQUAL AND UNLABORED. SITTER AT DOOR FOR SAFETY.
--- NOTE | 2017-02-28 22:48 | NUR ---
ASSUMED CARE OF PT PER RN MICHAEL, PT SLEEPING WITH RR, WILL CONTINUE TO MONITOR
--- NOTE | 2017-03-01 01:30 | NUR ---
PT SLEEPING WITH RR, BILATERAL CHEST RISE AND FALL NOTED. WILL CONTINUE TO MONITOR
--- NOTE | 2017-03-01 03:39 | NUR ---
PT SLEEPING WITH RR, WILL CONTINUE TO MONITOR.
--- NOTE | 2017-03-01 05:08 | NUR ---
PT AWAKE RESTING IN BED WITH RR WATCHING TV, WILL CONTINUE TO MONITOR
--- NOTE | 2017-03-01 06:30 | NUR ---
PT AWOKEN FOR VITALS, PT INFOMRED BREAKFAST WILL ARRIVE SOON
--- NOTE | 2017-03-01 07:51 | NUR ---
PT SIDE LYING AT THIS TIME; SLEEPING AT THIS TIME WITH REGULAR RESPIRATIONS NOTED, EQUAL CHEST RISE AND FALL. SITTER REMAINS PRESENT AWAITING CRISIS DISPO
--- NOTE | 2017-03-01 08:40 | NUR ---
PT REQUESTING B/P MED (PROPRANOLOL) AND MOTRIN FOR HEADACHE INFORMED
--- NOTE | 2017-03-01 09:22 | NUR ---
MEDICATED WITH ALL DAILY MEDS, INCLUDING TYLENOL FOR HEADACHE. PT REFUSING MULTI VITAMIN STATING IT MAKES HER NAUSEOUS. C/O NAUSEA BUT ABLE TO TOLERATE ALL PILLS. AUGUSTIN DILIA PROVIDED. REMAINS CALM AND COOPERATIVE. SITTER PRESENT
--- NOTE | 2017-03-01 10:07 | ED PSY CRISIS COLLATERAL NOTE ---
Collateral Note Collateral Note Family/Inform/Pamela Contacts: Cynthia notes this is not her baseline, her housing is increasingly in [place], increasingly paranoid and is usually depressed.
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
--- NOTE | 2017-03-01 11:15 | NUR ---
REPORT GIVEN TO ANALYSIS SPECIALIST MICHAEL
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
--- NOTE | 2017-03-01 12:07 | NUR ---
ASSUMED CARE OF THIS PT FROM VIDA HERNANDEZ. PT RESTING ON HER RIGHT SIDE. PT CALM AND COOPERATIVE. SITTER AT DOOR. PT AWAITING TRANSFER TO [facility].
--- NOTE | 2017-03-01 13:25 | NUR ---
PT AMBULATORY TO RESTROOM WITH STEADY GAIT. PT CALM AND COOPERATIVE. SITTER AT DOOR. AWAITING TRANSFER TO [facility].
--- NOTE | 2017-03-01 14:59 | NUR ---
PT CALM AND COOPERATIVE, LYING ON BED WATCHING TV. SITTER AT DOOR. VSS.
--- NOTE | 2017-03-01 16:29 | NUR ---
PT MEDICATED WITH NEURONTIN 300MG AND SEROQUEL 50MG PER EMAR. PT CALM AND COOPERATIVE. SITTER AT DOOR. PT AWAITING TRANSFER DOWN TO [facility].
[2017-03-01 17:52] VITALS: BP 137/64
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
[2017-03-01 20:28] VITALS: BP 143/86
[2017-03-02 08:26] VITALS: BP 120/89
--- NOTE | 2017-03-02 10:00 | History & Physical ---
General Information and HPI History of Present Illness: 56F PMH bipolar disorder, hyperthyroidism, GERD admitted to [facility] after being brought in by mobile crisis team under PEC. Patient is paranoid but not agitated. She appears calm and expresses a desire to go home, and does not seem to understand why she is in the hospital. She reports an urgency to be discharged as she has to have surgery for recently diagnosed skin cancer with Dr. Grey in [place] on 03/09/17. She indeed has a skin abnormality on her right quaker that has the potential for malignancy. She is otherwise well and has no physical complaints, other than fatigue since she was admitted, though she concedes she may just feel more relaxed being in this environment. Allergies/Medications Allergies: Coded Allergies: buspirone (From BUSPAR) (Intermediate, PER PT UNKNOWN STATES DOES NOT EXPERIENCE DYSPNEA 10/07/16) Home Med list Cholecalciferol (Vitamin D3) (Vitamin D) 2,000 UNIT CAPSULE 1 CAP PO DAILY SUPPLEMENT (Reported) Gabapentin 300 MG CAPSULE 1 CAP PO TID ANXIETY (Reported) Sidell Carbonate (Sidell Carbonate ER) 300 MG TABLET.ER 1 TAB PO DAILY MENTAL HEALTH (Reported) Losartan Potassium (Unknown Strength) TABLET (Unknown Dose) UNKNOWN (Reported ) Methimazole 10 MG TABLET 1 TAB PO DAILY THYROID (Reported) Multiple Vitamin (Multivitamins) 1 EACH TABLET 1 TAB PO DAILY SUPPLEMENT ( Reported) Pantoprazole Sodium 40 MG TABLET.DR 1 TAB PO DAILY GI (Reported) Propranolol HCl 20 MG TABLET 1 TAB PO BID THYROID (Reported) Quetiapine Fumarate 100 MG TABLET 1 TAB PO QPM SLEEP (Reported) Quetiapine Fumarate (Seroquel) 50 MG TABLET 1 TAB PO TID MENTAL HEALTH ( Reported) Sertraline HCl 100 MG TABLET 2 TAB PO DAILY MENTAL HEALTH (Reported) Topiramate 50 MG TABLET 1 TAB PO TID MIGRAINES (Reported) Past History Travel History Traveled to [place] past 21 day No Medical History Neurological: NONE EENT: NONE Cardiovascular: hypertension, hyperlipidemia Respiratory: NONE Gastrointestinal: NONE Hepatic: NONE Renal: RENAL STONES W/ STENTS Musculoskeletal: NONE Psychiatric: anxiety, bipolar disease, substance abuse (Depakote overdose), PTSD Endocrine: hyperthyroidism Blood Disorders: NONE Cancer(s): 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 EENTM: Reports: no symptoms. Cardiovascular: Reports: no symptoms. Respiratory: Reports: no symptoms. GI: Reports: no symptoms. Genitourinary: Reports: no symptoms. Musculoskeletal: Reports: no symptoms. Skin: Reports: see HPI. Neurological/Psychological: Reports: see HPI. Hematologic/Endocrine: Reports: no symptoms. Immunologic/Allergic: Reports: no symptoms. All Other Systems: Reviewed and Negative Exam & Diagnostic Data Last 24 Hrs of Vital Signs/I&O Vital Signs Date Time Temp Pulse Resp B/P B/P Pulse O2 O2 Flow FiO2 Mean Ox Delivery Rate 03/02 0826 95.9 94 120/89 03/02 0813 87 143/86 03/01 2146 143/86 03/01 2028 97.2 87 143/86 03/01 1752 98.1 97 137/64 / 1645 98.4 82 16 130/90 97 Room Air / 1630 Room Air 03/01 1459 82 16 130/90 97 Room Air 05/ 1209 96.7 76 16 131/96 97 Room Air / 1159 Room Air Physical Exam General Appearance Alert, Oriented X3, Cooperative, No Acute Distress Skin 2cm mildly erythematous plaque on right quaker HEENT Mucous Membr. moist/pink Neck Supple Cardiovascular Regular Rate Lungs Normal Air Movement Abdomen Soft Neurological Exam Findings: Grossly normal Cranial Nerves II through XII: Grossly normal Extremities No Edema Vascular Normal Pulses Last 24 Hrs of Labs/John: Laboratory Tests 03/01/17 2009: TSH Cancelled, Free T4 Cancelled, Thyroxine (T4) Cancelled Assessment/Plan Assessment: 56F PMH bipolar disorder, hyperthyroidism, GERD, recently diagnosed skin cancer admitted to [facility] due to paranoia, delusional thinking, and inability to function on her own. She is asymptomatic from a medical standpoint, save for the patch of abnormal skin that the patient reports is skin cancer on her right quaker. She is clinically euthyroid. Plan - Management by psychiatry - Continue Tapazole and Propranolol for hyperthyroidism - Does not require endocrine consult at this time, can follow up as outpatient - Continue Omeprazole for GERD - Would aim to have patient see her lead medical technologist on March 09, or at the very least reschedule to have her seen soon after eventual discharge - Continue home medications - Ambulatory for DVT PPx As Ranked By This Provider Problem List: 1. Bipolar 1 disorder 2. Anxiety and depression 3. Paranoid delusion 4. GERD (gastroesophageal reflux disease) 5. Skin cancer of face 6. Hyperthyroidism Miscellaneous Miscellaneous Documentation Attending Case Discussed With: DURAN MACIAS MD Primary Care Physician: EVI HUERTA,MYL Patient sees these Specialists Juanito Parra MD Level of Patient Care: [place]
--- NOTE | 2017-03-02 10:32 | SOCIAL WORKER PROG NOTE PSYCH ---
Social Work Progress Note Progress Note Discused Diya in team meeting with staff and Dr. Xie. Met with Diya this afternoon, she denied SI/HI, she stated how "awful" her experience was prior to coming into [facility]. She stated she police were called on her, and she said, "It could have been done differently." Diya stated she wanted to go home and that she doesn't feel she needs to be here (on CPS). She said she wanted additional locks on her door "for safety reasons, so when my 23yo son stays with me then he will be safe." Diya stated she slept ok last night, her appetite is good. She denied SI/HI, she seemed pleasant and cooperative. No mention of anyone breaking into her home or fears. Informed Diya another social security assessor will be meeiting with her tomorrow, 03/03, but Dr. Xie will see her today. Asked if there was anyone she would like a family meeting with and she declined, stated "I don't have anyone." Diya is interested in attending [facility]. When informed Diya her case management assistant, Ronit wanted to visit with her today on the unit, Diya said "No!!." Plan to discuss if her 23yo son may want to come in for a meeting? Spoke with Cynthia Rajput, [facility] this morning, she stated staff was concerned about Diya's increased paranoia, and how they found bottles of her medications and concern she wasn't taking her medication. They feel she has been increasingly paranoid over the past month. She has a case management assistant, Ronit - who called today and wanted to visit with Diya on the unit. I called her back and advised she wait for a few days prior to meeting with Diya.
[2017-03-02 12:10] VITALS: BP 120/73
--- NOTE | 2017-03-02 12:30 | NUR ---
PT IS PLEASANT, RESPECTFUL, CALM, PRESENT WITHIN THE COMMUNITY AND INTERACTING APPROPRIATELY WITH PEERS AND STAFF, REPORTED IN PLANNING MEETING + MOOD AND + SLEEP AND GOAL WAS TO "GO TO GROUPS AND BE POSITIVE", VSS, MOOD STABLE WITH FLAT AFFECT YET DOES HAVE AN APPROPRIATE FULL RANGE AFFECT/RESPONSE WHEN ENGAGED IN CONVO.
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
--- NOTE | 2017-03-02 15:30 | SOCIAL WORKER TX PLAN PSYCH ---
Treatment Plan - Please Document: - Evidence that there is ongoing collaboration between - the patient and the interdisciplinary team, - including the patient's active participation and - responsibility for engaging in the treatment regimen, - and that the treatment plan is individualized and - relevant to the patient's conditions. - Treatment plan should reflect documentation indicating - that all active therapeutic efforts are included. Strengths/Capabilities: maintained sobriety past 4 yrs/engaged in tx at [facility] Physical Limitations (Interventions): None reported Patient Identified Trmt Goals: I want to go home. Discharge Plan: [facility] Care Case management Problem/Goals #1 Problem #1: psychosis Goal (Short Term): Be safe on unit, inform staff if having AH/VH. Reduce or eliminate psychoisis, attend groups if tolerated. Meet with SW daily and MD daily as well. Be compliant with medications.n Family meeting offered (PT refused). Goal ([place] Tanner): Maintain stabel mood, and discuss stressors that led to hospitalization and reduce/prevent them. PT. to engage in [facility] level of care and remain compliant on medications. Interventions: Provide 1:1 individual therapy, PT. to attend 3-4 groups daily (if tolerated) . PT to meet with MD daily. Encourage strengths, supports and provide validation and ways to maintain compliance with treatment and medication. Modalities: Provide CBT, RI, DBT treatment modalities. Individual, group and medication management, accupuncture, relaxation/meditation, discuss triggers and coping skills to stressors. DSM5/PS Stressors/Medical Prob Diagnosis' (DSM 5, Stressors, Medical): F32.9 Depressive Disorder Unspecified. F31.81 Bipolar Disorder II & F43.10 PTSD by hx (recent 10/15), Medical Condition Hyperthyroidism, HTN, Hyperlipidemia, Hx of Migraines. Unemployed. Current GAF: 20 Treatment Team - Responsibilities of members of the treatment team include: - Medication Management- MD or LARD RENDERER - Medication Administration and Monitoring- Nurse - Group Therapy- Occupational Therapist - 1:1 Therapy,Disch Planning,family involvement-Junior Net Developer
[2017-03-02 16:00] VITALS: BP 123/84
[2017-03-02 20:04] VITALS: BP 149/95
--- NOTE | 2017-03-02 21:44 | NUR ---
PT IS VISIBLE ON UNIT, WATCHING TV IN LOUNGE AND SOCIALZING WITH PEERS. COOPERATIVE AND COMPLIANT WITH STAFF. ATTENDED WRAP UP MEETING. NO COMPLAINTS OR SI REPORTED. PT HAS A STABLE MOOD AND FULL RANGE AFFECT.
[2017-03-03 07:57] VITALS: BP 126/96
[2017-03-03 12:19] VITALS: BP 120/83
--- NOTE | 2017-03-03 12:20 | NUR ---
PT IS PRESENT WITHIN THE COMMUNITY AND SOCIAL AT TIMES WITH PEERS AND STAFF, DID NOT GO TO PLANNING GROUP. THIS MORNING AT 0800 MED PASS, PT REPORTED TO MED RN THAT SHE WAS EXPERIENCING ACID REFLUX/ANXIETY THAT WAS MANIFESTED IN CHEST PAIN, NO ACUTE DISTRESS NOTED OR DIAPHORESIS, SOB, ETC...VITAL SIGNS STABLE. DR. MACIAS NOTIFIED RE: THE ABOVE AND EKG ORDERED AND TROPONINS. PT RESTED AND HAD + APPETITE AND REPORTED S/SX WERE DECREASING, EKG REMAINED UNCHANGED FROM PREVIOUS AND TROPONINS WERE NEGATIVE, TEAM AWARE. PT STABLE OVERALL WITH NO OTHER COMPLAINTS OR ISSUES.
--- NOTE | 2017-03-03 13:49 | SOCIAL WORKER PROG NOTE PSYCH ---
Social Work Progress Note Progress Note Pt reports feeling sad, depressed and hopeless, didnt want to get out of bed. Pt reports she isnt feeling physically well either and prefers to rest at this time. * Additions to or changes in the treatment plan along with reasons for same * Contacts with family and significant others in treatment, including family meeting(s) * Family attitudes * Community resource contacts and liaison with other clinicians/agencies
[2017-03-03 16:15] VITALS: BP 132/91
--- NOTE | 2017-03-03 19:53 | CP SOUTH PROGRESS NOTE PSYCH ---
Psych (Inpt) Progress Note Progress Note Include the following elements, when applicable: Involvement in the active treatment of the patient with behavioral observations of the patient and the patient's response to the treatment. Review of the ongoing treatment process in the context of the treatment plan. Indication of how multi-disciplinary staff members are carrying out the treatment plan. Plans for future interventions and recommendations for revision of the treatment plan. Liaison with other physicians/providers. Progress Note: PSYCHIATRIST NOTE, 03/03/2017: I discussed this patient's progress thus far, current mental status, treatment and discharge planning with staff team today in the morning ITTM and also met with patient again myself in individual session. Patient reported sleeping well last night and her impression was confirmed in the nursing overnight report. She appeared less apprehensive, brighter in affect, able to smile on occasion, better groomed and more hopeful/future-oriented. No PRN Seroquel has been given/required thus far; patient is currently taking a total of Seroquel, 225mg daily; there is no evident paranoid ideation or psychotic thought process, no negative effects to date on mood from reduction in maintenance dose of Zoloft from 200mg to 150mg/day. If a family meeting cannot be organized, perhaps there could at least be a meeting with patient and her case hardener, Ronit, while she is here.
[2017-03-03 20:22] VITALS: BP 130/77
--- NOTE | 2017-03-03 20:48 | NUR ---
PT IS CALM, COOPERATIVE WITH STAFF AND PEERS, AND COMPLIANT WITH UNIT RULES. PT IS OFTEN IN [place], INTERACTING WELL WITH OTHERS. MOOD IS STABLE, AFFECT IS EUTHYMIC TO FULL RANGE, COMMUNICATION IS ORGANIZED AND APPEARS NORMAL IN ALL RESPECTS, AND APPETITE IS NORMAL. PT DENIES SI AT THIS TIME.
[2017-03-04 07:19] VITALS: BP 115/79
[2017-03-04 08:25] LABS: LITHIUM 0.7 mmol/L (0.6-1.2)
--- NOTE | 2017-03-04 10:21 | SOCIAL WORKER PROG NOTE PSYCH ---
Social Work Progress Note Progress Note Discussed Diya in team meeting [facility] Dr. Xie and staff. Met with her this afternoon, Diya stated she doesn't know why she is here. She is angry with her correctional case manager, Ronit for "coming at me....she was yelling at me about losing my apartment last time." Diya stated she wanted the extra lock on her door, but called the housing authority and they told her she could not do this. Apparently she informed Ronit of this as well. When I asked Diya about her thoughts about someone coming through the ceiling, she stated her neighbor upstairs was banging on the floor, and it was upsetting to her. She didn't know why her neighbor was doing this and doesn't know him well enough to talk to him. She denied SI/HI, no psychosis today. No overt psychosis noted. She did seem irritable, agitated when discussing her experience with [facility] and her correctional case manager. She does not want a meeting with her 24yo son, or anyone else. She stated "He (son) has enough going on, I don't want to involve him." Diya stated she has her 24yo son over sometimes, but that he doesn't live at her apartment. Discussed signing a voluntary today, Diya refused. She wants to leave on Tuesday and go to [facility]. Encouraged Diya to discuss with Dr. Xie when she meets with him. Need to do Transfer form for IOP referral.
[2017-03-04 12:09] VITALS: BP 135/58
--- NOTE | 2017-03-04 14:52 | NUR ---
PT PRESENT IN COMMUNITY, ATTENDING GROUPS, INTERACTING WITH PEERS AND STAFF. PT MOOD STABLE - FULL RANGE AFFECT. PT ATE WELL. VS GOOD. NO COMPLAINTS OFFERED.
[2017-03-04 15:44] VITALS: BP 122/72
--- NOTE | 2017-03-04 16:55 | CP SOUTH PROGRESS NOTE PSYCH ---
Psych (Inpt) Progress Note Progress Note Include the following elements, when applicable: Involvement in the active treatment of the patient with behavioral observations of the patient and the patient's response to the treatment. Review of the ongoing treatment process in the context of the treatment plan. Indication of how multi-disciplinary staff members are carrying out the treatment plan. Plans for future interventions and recommendations for revision of the treatment plan. Liaison with other physicians/providers. Progress Note: PSYCHIATRIST NOTE, 03/04/2017: I discussed this patient's progress to date, current mental status, treatment and discharge planning with staff team today in the daily morning ITTM and also met with her again myself in individual session. Patient slept well again last night and today her affect seemed brighter and mood improving. I had thought of augmenting Zoloft at the lower dose of 150mg/day with Wellbutrin, but patient told me she had experienced considerable jitteriness upon previous exposure to that medication; in any event, augmentation seems less indicated/ less of a necessity at this point. Serum Lithiuim level this morning was 0.7mEq /L and Intercourse continues to be well tolerated at current dose of 600mg/day; since patient is doing better in terms of mood, though current concentration of Intercourse is somewhat on the low side in the interests of preserving her tolerance of this important medication for as long as possible, we will not increase current dosing but will repeat level and renal functions once more prior to discharge; creatinine/GFR have actually improved somewhat since admission, though BUN nearly doubled from 11 to 20; I have reminded patient to maintain an adequate fuild intake.
[2017-03-04 19:34] VITALS: BP 122/87
[2017-03-04 20:00] VITALS: BP 122/87
--- NOTE | 2017-03-04 20:17 | NUR ---
PT HAS BEEN SEEN IN THE LG AND WITH PEERS AROUND THE [facility]. SHE HAS NOT HAD MANY CONVERSATIONS WITH PEERS BUT WILL LAUGH AND SMILE AROUND A FEW PEOPLE. SHE APPEARS TO BE SLIGHTY CONSTRICTED AT TIMES BUT IS NOT ISOLATIVE. PT HAS NOT EXPRESSED ANY EMOTIONAL DISTRESS OR THOUGHTS OF SI.
--- NOTE | 2017-03-05 04:03 | NUR ---
Slept. No issues or complaints.
[2017-03-05 07:46] VITALS: BP 102/80
[2017-03-05 12:04] VITALS: BP 104/63
--- NOTE | 2017-03-05 12:50 | CP SOUTH PROGRESS NOTE PSYCH ---
Psych (Inpt) Progress Note Progress Note Include the following elements, when applicable: Involvement in the active treatment of the patient with behavioral observations of the patient and the patient's response to the treatment. Review of the ongoing treatment process in the context of the treatment plan. Indication of how multi-disciplinary staff members are carrying out the treatment plan. Plans for future interventions and recommendations for revision of the treatment plan. Liaison with other physicians/providers. Progress Note: Pt notes that he is "good." Noted by RNs to be attending groups. Pt notes she slept well. Has no visitors and limited supports. Denies SI or HI. Denies AVHs. Current Medications Sig/Martin Start time Last Medication Dose Route Stop Time Status Admin Al Hydroxide/Mg 30 ML Q12P PRN 03/03 1345 AC 03/03 Hydroxide PO 1659 Cholecalciferol 1,000 IU 03/03 0800 AC 03/05 PO 0821 Cyanocobalamin 1,000 MCG 0803/04 0800 AC 03/05 PO 0821 Gabapentin 300 MG 0800,1700,2200 03/02 2200 AC 03/05 PO 0820 Glenvil Carbonate 300 MG 0800,03/02 AC 03/05 PO 0820 Losartan Potassium 50 MG 0803/03 1345 AC 03/05 PO 0820 Methimazole 10 MG 0803/03 0800 AC 03/05 PO 0821 Multivitamins 1 TAB DAILY 03/01 1000 AC 03/05 Therapeutic PO 0821 Omeprazole 40 MG DAILY AC 03/02 0700 AC 03/05 PO 0630 Propranolol HCl 20 MG 0800,03/02 AC 03/05 PO 0820 Quetiapine Fumarate 25 MG 0800,1300,1700 03/03 0800 AC 03/05 PO 1227 Quetiapine Fumarate 150 MG 2200 03/02 2200 AC 03/04 PO 2124 Quetiapine Fumarate 25 MG Q2P PRN 03/02 1800 AC 03/04 PO 1101 Sertraline HCl 150 MG 0800 03/03 0800 AC 03/05 PO 0821 Topiramate 50 MG 0800,1700,2200 03/02 2200 AC 03/05 PO 0821 Laboratory Tests 03/04 03/03 0639 0805 Chemistry BUN (7 - 17 mg/dL) 20 H Creatinine (0.5 - 1.0 mg/dL) 1.0 Estimated GFR (>60 ml/min) 58 L BUN/Creatinine Ratio (7 - 25 %) 20.0 Troponin I (< 0.11 ng/ml) < 0.01 TSH (0.270 - 4.200 uIU/mL) 6.190 H Free T4 (0.64 - 1.79 ng/dL) 0.45 L Toxicology Glenvil (0.6 - 1.2 mmol/L) 0.7 Vital Signs Date Time Temp Pulse Resp B/P B/P Pulse O2 O2 Flow FiO2 Mean Ox Delivery Rate 03/05 1204 80 104/63 05/06 0820 96.1 86 16 102/80 05/ 0820 96.1 86 16 102/80 / 0746 96.1 86 102/80 /1999 96.8 96 122/87 03/04 1934 96 122/87 03/04 1934 96 122/03/04 1544 93 122/72 MSE Appears as stated age. Cooperative behavior, good, appropriate eye contact. Nl speech rate and prosody. No psychomotor retardation or agitation. Mood fine Affect flat, depressed, constricted, appropriate, non-liable. Linear and goal directed thought process. Denies SI or HI. Does not appear to be responding to internal stimuli. Denies AVHs, paranoia, or delusions. I/J: limited A/P: Pt with bipolar disorder, most recent episode depressed now with improved mood. - Continue current medication regimen - Plans to f/u endocrine with Dr. Parra (outpt endo)
--- NOTE | 2017-03-05 13:29 | NUR ---
Patient is present in the community, A&O X 3, compliant with medication and group theraies. Patient reported poor night sleep but good appetite a bit reclusive in her room on bed rest, Appetite is good, mood is stable with Euthymic affect, minimal interaction with other peers and staff members. Patient denies any thought of self-harm and to someone else.
[2017-03-05 16:13] VITALS: BP 116/75
[2017-03-05 19:50] VITALS: BP 122/94
--- NOTE | 2017-03-05 20:38 | NUR ---
PT IS VISIBLE ON UNIT, MOSTLY STAYING TO HERSELF AND WATCHING TV IN LOUNGE. MINIMAL INTERACTION WITH PEERS, COOPERATIVE AND COMPLIANT WITH STAFF. NO COMPLAINTS OR SI REPORTED. PT HAS A STABLE MOOD AND FULL RANGE AFFECT.
--- NOTE | 2017-03-06 05:44 | NUR ---
PT IS ON A PEC. PT SOMEWHAT ISOLATIVE BUT COOP. PT SLEPT.
[2017-03-06 07:40] VITALS: BP 118/77
--- NOTE | 2017-03-06 11:26 | CP SOUTH PROGRESS NOTE PSYCH ---
Psych (Inpt) Progress Note Progress Note Include the following elements, when applicable: Involvement in the active treatment of the patient with behavioral observations of the patient and the patient's response to the treatment. Review of the ongoing treatment process in the context of the treatment plan. Indication of how multi-disciplinary staff members are carrying out the treatment plan. Plans for future interventions and recommendations for revision of the treatment plan. Liaison with other physicians/providers. Pt notes that she is "good." Notes good sleep as well. Plans for d/c tuesday. Still not contacted mother as does not want to worry her. Denies SI or HI. Denies AVHs. Current Medications Sig/Maritn Start time Last Medication Dose Route Stop Time Status Admin Al Hydroxide/Mg 30 ML Q12P PRN 03/03 1345 AC 03/03 Hydroxide PO 1659 Cholecalciferol 1,000 IU 03/03 08 AC 03/06 PO 0826 Cyanocobalamin 1,000 MCG 0803/04 08 AC 03/06 PO 0826 Gabapentin 300 MG 0800,1700,2200 03/02 2200 AC 03/06 PO 0826 [place] Carbonate 300 MG 08,03/02 AC 03/06 PO 0826 Losartan Potassium 50 MG 0803/03 1345 AC 03/06 PO 0826 Methimazole 10 MG 0803/03 0800 AC 03/06 PO 0825 Multivitamins 1 TAB DAILY 03/01 1000 AC 03/06 Therapeutic PO 0826 Omeprazole 40 MG DAILY AC 03/02 07 AC 03/06 PO 0604 Propranolol HCl 20 MG 08,03/02 AC 03/06 PO 0825 Quetiapine Fumarate 25 MG 0800,1300,1700 03/03 0800 AC 03/06 PO 0826 Quetiapine Fumarate 150 MG 2200 03/02 2200 AC 03/05 PO 2126 Quetiapine Fumarate 25 MG Q2P PRN 03/02 1800 AC 03/05 PO 1334 Sertraline HCl 150 MG 0803/03 0800 AC 03/06 PO 0826 Topiramate 50 MG 0800,1700,2200 / 2200 AC 03/06 PO 0826 Laboratory Tests 03/04 06 Chemistry BUN (7 - 17 mg/dL) 20 H Creatinine (0.5 - 1.0 mg/dL) 1.0 Estimated GFR (>60 ml/min) 58 L BUN/Creatinine Ratio (7 - 25 %) 20.0 TSH (0.270 - 4.200 uIU/mL) 6.190 H Free T4 (0.64 - 1.79 ng/dL) 0.45 L Toxicology [place] (0.6 - 1.2 mmol/L) 0.7 Vital Signs Date Time Temp Pulse Resp B/P B/P Pulse O2 O2 Flow FiO2 Mean Ox Delivery Rate 03/06 826 96.1 79 16 118/77 03/06 0825 96.1 79 16 118/03/06 0740 96.1 79 118/03/05 1950 96.6 95 122/94 05/06 1943 96.1 89 16 116/75 05/06 1613 89 116/75 05/06 1204 80 104/63 MSE Appears as stated age. Cooperative behavior, good, appropriate eye contact. Nl speech rate and prosody. No psychomotor retardation or agitation. Mood good Affect flat, depressed, constricted, appropriate, non-liable. Linear and goal directed thought process. Denies SI or HI. Does not appear to be responding to internal stimuli. Denies AVHs, paranoia, or delusions. I/J: limited A/P: Pt with bipolar disorder, most recent episode depressed now with improved mood. - Continue current medication regimen - Plans to f/u endocrine with Dr. Parra (outpt endo)
[2017-03-06 12:20] VITALS: BP 120/67
--- NOTE | 2017-03-06 13:39 | NUR ---
Patient presents as irritable, flat, minimal interaction with peers. Patient attentive to hygiene, med compliant, reports d/c tomorrow.
[2017-03-06 15:38] VITALS: BP 123/78
[2017-03-06 19:53] VITALS: BP 123/81
--- NOTE | 2017-03-06 22:07 | NUR ---
PT IS CALM, COOPERATIVE WITH STAFF AND PEERS, AND COMPLIANT WITH UNIT RULES. PT IS OFTEN IN [place], INTERCATING WELL WITH OTHERS. MOOD IS STABLE, AFFECT IS EUTHYMIC TO FULL RNAGE, COMMUNICATION IS ORGANZIED AND APPEARS NORMAL IN ALL RESPECTS, AND APPETITE IS NORMAL. PT DENIES SIS AT THIS TIME.
--- NOTE | 2017-03-07 05:02 | NUR ---
PT SLEPT. PT WANTS A NEW CASEWORKER AND FEELS HER HOSPITALIZATION IS THE CASEWORKER'S FAULT.
[2017-03-07 07:38] VITALS: BP 121/79
[2017-03-07 08:32] LABS: LITHIUM 0.7 mmol/L (0.6-1.2)
--- NOTE | 2017-03-07 11:57 | NUR ---
Patient renains on q15 minutes checks for safety and observation.Presents with a constricted affect and anxious mood but pleasant, calm and cooperative. Visible on the unit and social with select peers.Compliant with scheduled medications and denies any side effects. Patient received PRN seroquel due to increased agitation with some effect, patient upset about delayed discharge. Denies Si/HI/AVH at this time. Will continue to monitor and offer support as needed.
[2017-03-07 12:04] VITALS: BP 108/68
--- NOTE | 2017-03-07 13:36 | NUR ---
PT IS SCHEDULED FOR D/C TODAY TO [facility]. SHE REPORTS THAT SHE FEELS READY TO LEAVE. SHE DENIED ANY THOUGHTS OF SUICIDE OR SELF HARM AT THIS TIME. SHE IS COMPLIANT WITH HER MED REGIME AND WILL FOLLOW UP WITH CARE. PT IS GIVEN EDUCATION ON MANAGING HER MOOD D/O AND OM PREVENTING SUICIDE
[2017-03-07] MEDS ORDERED: SEROQUEL50 M1 PO ×2 (14:02→14:03)
[2017-03-07] MEDS ORDERED: LITHIUM CARBON300 M4 PO (14:04)
[2017-03-07] MEDS ORDERED: ZOLOFT100 M1 PO (14:18)
--- NOTE | 2017-03-07 14:59 | SOCIAL WORKER PROG NOTE PSYCH ---
Social Work Progress Note Progress Note Met with Diya today, she was anxious to discharge today. She was irritable the process wasn't fast enough for her. She agreed to follow-up at IOP has an intake on . 03/08/17 at 12:45pm. She was given a smoking cessation referral for 03/16/17 at 4pm with DEMETRIO WeirW at [facility] [address] Diya seemed interested in this as well. Plan to Faxed W10 to [facility] and [facility]. Completed [facility] online discharge. Phoned Cynthia Rajput, of [facility] (Juanpablo Hauser), and informed her of Diya's discharge. Diya has a casey saw operator at [facility] - Ronit.
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
--- NOTE | 2017-03-07 15:30 | CP SOUTH PROGRESS NOTE PSYCH ---
Psych (Inpt) Progress Note Progress Note Include the following elements, when applicable: Involvement in the active treatment of the patient with behavioral observations of the patient and the patient's response to the treatment. Review of the ongoing treatment process in the context of the treatment plan. Indication of how multi-disciplinary staff members are carrying out the treatment plan. Plans for future interventions and recommendations for revision of the treatment plan. Liaison with other physicians/providers. Progress Note: PSYCHIATRIST NOTE (DISCHARGE), 03/07/2017: I discussed this patient's progress to date, current mental status, treatment and discharge plans with staff team today in the daily morning ITTM and met with her again myself in individual session prior to discharging her to intake at the [facility] tomorrow, 03/08/2017 at 12:45pm; she continues to be very positive re attending [facility]; she was concerned she would not be able to attend program until 03/10/2017, as she is currently scheduled for removal of a basal cell from her head at "[facility]" ([facility]) on 2016. [place]ar dose was stabilized at 600mg/day with serum concentrations stable at 0.7mEq/L; though level could be considered somewhat marginal patient is currently stabilized on this regimen, and we are trying to preserve her ability to remain on this very helpful medication as long as she can and renal and thyroid functions should be followed closely while she continues on [place]ar prophylaxis. Apparently, patient was not on any neuroleptic medication upon most recent discharge from [facility] in 09/2016; addition and titration of Seroquel seems to have been very helpful during current admission, but dose can likely be gradually reduced following an interval of outpatient stabilization. Patient is on day of discharge, bright and cheerful in affect, euthymic, not irritable, future-oriented, showing no current evidence of suicidal or homicidal ideation, plans, intent or impulses and is well aware of her safety plan should she every in future come to believe herself at acute risk of self-harm or harming others. Among the issues which may have contributed to this readmission are move to a new apartment, decrease in Blackshear dose, and not being on a neuroleptic agent. I called into [facility], [place], [place] on day of discharge, : [place]ar carbonate, 300mg: i tablet 2x/day (600mg daily); #28 with no refill ( stabilize mood) Seroquel, 50mg: i 3x/day; #42 with no refill (randal mood/clarify thinking/ reduce racing thoughts) Seroquel, 100mg: i tablet nightly at HS; #14 with no refill (as above) (patient is currently prescribed 250mg/day of Seroquel) I decided to discontinue the regular Neurontin due to concern that along with the introduction and upward titration of Seroquel the combination might prove sedating and possibly cause patient to stop taking the Seroquel which has been very beneficial during this admission, whereas, I cannot say that the Neurotin has added significantly to restabilization. 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
== END 2017-03-07 15:25 | DRG 885 ==
LOC: ERH 14:06 → CP SOUTH 03-01 16:48 → ERHI 03-01 16:48 → CP SOUTH 03-01 17:41
PROVIDERS: Physician Assistant; ADMIT Psychiatry & Neurology Addiction Medicine
DX: F31.64 Bipolar disorder, current episode mixed, severe, with psychotic features (principal); F17.200 Nicotine dependence, unspecified, uncomplicated; F43.10 Post-traumatic stress disorder, unspecified; Z87.898 Personal history of other specified conditions
CPT/HCPCS: 36415; 80307; 90832; 93005; 93010; G0463; G0480; J3490

== ENCOUNTER 2017-05-11 11:50 | Emergency (ER) | payer OTHER, MEDICARE ==
[~2017-05-11] VITALS: Ht 172.7 cm; Wt 70.3 kg
[~2017-05-11 11:50] MED LIST changes: +LITHIUM CARBON300 M4 PO
[2017-05-11 11:54] VITALS: BP 129/88
--- NOTE | 2017-05-11 12:07 | ED THROAT/DENTAL COMPLAINT ---
History of Present Illness General Chief Complaint: Sore Throat, Dental Pain Stated Complaint: PER PT R SIDE MOUTH/TOOTHINFECTION Source: patient, old records Exam Limitations: no limitations Vital Signs & Intake/Output Vital Signs & Intake/Output Vital Signs Date Time Temp Pulse Resp B/P B/P Pulse O2 O2 Flow FiO2 Mean Ox Delivery Rate 05/11 1154 98.8 88 18 129/88 98 Room Air Allergies Coded Allergies: buspirone (From BUSPAR) (Intermediate, PER PT UNKNOWN STATES DOES NOT EXPERIENCE DYSPNEA 10/07/16) bupropion (From WELLBUTRIN) (Mild, JITTERY 03/04/17) PER . -CG 03/04/17 1613 Reconcile Medications Amoxicillin 875 MG TABLET 1 TAB PO BID gingivitis Cholecalciferol (Vitamin D3) (Vitamin D) 2,000 UNIT CAPSULE 1 CAP PO DAILY SUPPLEMENT (Reported) [place] Carbonate 300 MG CAPSULE 300 MG PO 0800,2000 mood stabilization Losartan Potassium 50 MG TABLET 1 TAB PO DAILY lower blood pressure (Reported ) Methimazole 10 MG TABLET 1 TAB PO DAILY THYROID (Reported) Multiple Vitamin (Multivitamins) 1 EACH TABLET 1 TAB PO DAILY SUPPLEMENT ( Reported) Pantoprazole Sodium 40 MG TABLET.DR 1 TAB PO DAILY GI (Reported) Propranolol HCl 20 MG TABLET 1 TAB PO BID THYROID (Reported) Quetiapine Fumarate (Seroquel) 50 MG TABLET 150 MG PO 2200 clarify thinking Quetiapine Fumarate (Seroquel) 50 MG TABLET 50 MG PO BID clarify thinking Sertraline HCl (Zoloft) 100 MG TABLET 100 MG PO 0800 anti-depressant Topiramate 50 MG TABLET 1 TAB PO TID MIGRAINES (Reported) Triage Note: 56 YO FEMALE TO ER C/O ?INFECTION TO GUM. STATES SHE HAD A DEEP CLEANING DONE 1 WEEK AGO AND "THEY DIDNT DO WHAT THEY WERE SUPPOSED TO" NOTED WITH SWELLING TO R SIDE OF MOUTH. AFEBRILE AT THIS TIME Triage Nurses Notes Reviewed? yes Onset: Gradual Duration: day(s): Timing: recent history Severity: moderate HPI: 56yo female presents to ED c/o pain in teeth and gums following dental cleaning procedure one week ago with swelling to right side of her cheek since yesterday. She also complains of gum bleeding yesterday while brushing her teeth. She also c/o left ear pain and chills beginning yesterday. 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 She denies fevers, chills, sore throat, difficulty breathing, nausea, vomiting, diarrhea. (CHERRI DORANTES PA-C) Past History Travel History Traveled to [place] past 21 day No Medical History Any Pertinent Medical History? 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 No (CHERRI DORANTES PA-C) Review of Systems Review of Systems Constitutional: Reports: see HPI. EENTM: Reports: see HPI. Respiratory: Reports: no symptoms. Cardiovascular: Reports: no symptoms. GI: Reports: see HPI. Genitourinary: Reports: no symptoms. Musculoskeletal: Reports: no symptoms. Skin: Reports: no symptoms. Neurological/Psychological: Reports: no symptoms. Hematologic/Endocrine: Reports: no symptoms. Immunologic/Allergic: Reports: no symptoms. All Other Systems: Reviewed and Negative (CHERRI DORANTES PA-C) Physical Exam Physical Exam General Appearance: well developed/nourished, no apparent distress, alert, awake Head: atraumatic, normal appearance Eyes: Bilateral: normal appearance, EOMI. Ears: Bilateral: canal normal, Tympanic normal. Nose: normal inspection Mouth/Throat: pharynx normal, gingival tenderness, firm swelling of right upper gingiva without fluctuance, mild erythema Neck: normal inspection, supple, full range of motion Cardiovascular/Respiratory: normal breath sounds, regular rate/rhythm, no respiratory distress Gastrointestinal: normal bowel sounds Back: normal inspection, normal range of motion Neurologic/Psych: awake, alert, oriented x 3 Skin: intact, normal color Core Measures ACS in differential dx? No Severe Sepsis Present: No Septic Shock Present: No (JAYNA HUYNH,CHERRI MEYERS) Progress Differential Diagnosis: carious tooth, Ludwigs angina, odontogenic abscess, anthony -tonsillar abscess, stomatitis/gingivitis, strep pharyngitis Plan of Care: The patient has mild right sided swelling of her cheek. She also has a tender lump on gingiva of right upper side of mouth. The patient agrees to follow-up with the dentist to perform her teeth cleaning today or tomorrow. She is nontoxic appearing, afebrile, her vital signs are stable, she is sitting comfortably in stretcher in no acute distress. She was given a course of antibiotics for possible infection. She was given an additional dental referral for second consultation if necessary. She was discussed with Dr. Booth. The patient is in agreement with the plan of care. (CHERRI DORANTES PA-C) Departure Departure Disposition: HOME OR SELF CARE Condition: Stable Clinical Impression Primary Impression: Pain, dental Secondary Impressions: Cheek swelling, Gingivitis Referrals: MARIA TERESA RAYGOZA,ANDREW STEVE MD,MYL (PCP/Family) Additional Instructions: Take full course of antibiotics as prescribed. Follow-up with your dentist who performed the tooth procedure, call to inform them that you're seen and evaluated today. You may also call dental referral given to today for additional consultation. Take Tylenol or Motrin as prescribed as needed for ear pain. Follow up with her primary care doctor. Return with any worsening symptoms or concerns. Departure Forms: Customer Survey General Discharge Information Prescriptions: Current Visit Scripts Amoxicillin 1 TAB PO BID #14 TAB (CHERRI DORANTES PA-C) PA/METAL SPRAYER Co-Sign Statement Statement: ED Attending supervision documentation- I saw and evaluated the patient. I have also reviewed all the pertinent lab results and diagnostic results. I agree with the findings and the plan of care as documented in the PA's/METAL SPRAYER's documentation. x I have reviewed the ED Record and agree with the PA's/METAL SPRAYER's documentation. [] Additions or exceptions (if any) to the PAs/METAL SPRAYER's note and plan are summarized below: [] (NEELAM HUERTA,STEPHANY)
[2017-05-11] MEDS ORDERED: AMOXICILLIN875 M1 PO (12:41)
== END 2017-05-11 12:46 ==
LOC: ERH 11:50
DX: K05.10 Chronic gingivitis, plaque induced (principal); R22.0 Localized swelling, mass and lump, head

== ENCOUNTER 2018-03-25 17:07 | Emergency (ER) | payer OTHER, MEDICARE ==
[~2018-03-25] VITALS: Ht 172.7 cm; Wt 72.6 kg
[~2018-03-25 17:07] MED LIST changes: +AMOXICILLIN875 M1 PO; +CYCLOBENZAPRINE5 M2 PO; +IBUPROFEN800 M1 PO; +PYRIDIUM200 M1 PO; +SEROQUEL100 M1 PO; +TOPAMAX100 M1 PO
--- NOTE | 2018-03-25 17:33 | ED GI/GU/ABDOMINAL COMPLAINT ---
History of Present Illness General Chief Complaint: Abdominal Pain/Flank Pain Stated Complaint: ABD PAIN AND BACK PAIN Source: patient, old records Exam Limitations: no limitations Vital Signs & Intake/Output Vital Signs & Intake/Output Vital Signs Date Time Temp Pulse Resp B/P B/P Pulse O2 O2 Flow FiO2 Mean Ox Delivery Rate 03/25 1957 98.3 92 18 124/78 97 Room Air 03/25 1711 97.9 101 20 127/83 98 Room Air Allergies Coded Allergies: buspirone (From BUSPAR) (Intermediate, PER PT UNKNOWN STATES DOES NOT EXPERIENCE DYSPNEA 10/07/16) bupropion (From WELLBUTRIN) (Mild, JITTERY 03/04/17) PER . -CG 03/04/17 1613 Reconcile Medications Cholecalciferol (Vitamin D3) (Vitamin D) 2,000 UNIT CAPSULE 1 CAP PO DAILY SUPPLEMENT (Reported) Ciprofloxacin HCl (Cipro) 500 MG TABLET 1 TAB PO BID UTI Cyclobenzaprine HCl 5 MG TABLET 1 TAB PO TIDPRN PRN pain Cyclobenzaprine HCl 5 MG TABLET 1 TAB PO TIDPRN PRN PAIN Ibuprofen 800 MG TABLET 1 TAB PO TID pain [place] Carbonate 300 MG CAPSULE 300 MG PO 0800,2000 mood stabilization Methimazole 10 MG TABLET 1 TAB PO DAILY THYROID (Reported) Pantoprazole Sodium 40 MG TABLET.DR 1 TAB PO DAILY GI (Reported) Phenazopyridine HCl (Pyridium) 200 MG TABLET 1 TAB PO TID dysuria Propranolol HCl 20 MG TABLET 1 TAB PO BID TREMORS (Reported) Quetiapine Fumarate (Seroquel) 100 MG TABLET 250 MG PO QPM MENTAL HEALTH ( Reported) Quetiapine Fumarate (Seroquel) 50 MG TABLET 50 MG PO BID clarify thinking Sertraline HCl (Zoloft) 100 MG TABLET 2 TAB PO DAILY MENTAL HEALTH (Reported) Topiramate (Topamax) 100 MG TABLET 1 TAB PO BID MIGRAINES (Reported) Triage Note: REPORTS RLQ PAIN THAT STARTED THIS AFTERNOON AND ITS NOW RADIATING TO HER BACK. REPORTS DIFFICULTY PASSSING HER URINE AND SLIGHT BURNING UPON URINATION. Triage Nurses Notes Reviewed? yes ? n Is pt currently ? No Onset: Abrupt Duration: day(s): (1), constant Timing: recent history Quality/Severity: aching Severity Numbers: 5 Location: right lower quadrant Radiation: back Activities at Onset: none Prior Abdominal Problems: similar symptoms No Modifying Factors: none Associated Symptoms: denies HPI: 57-year-old female history of kidney stones bipolar disease hypertension presents to ER evaluation after developing right lower quadrant abdominal pain radiating to her back since this morning. She was seen by myself 5 days ago which time she was having lower back pain urinary frequency urgency. Urine culture showed no growth however she was sent home with ibuprofen and Pyridium. Symptoms persist no recent trauma. She denies saddle anesthesia no leg numbness or tingling. Abdominal surgeries only significant for hysterectomy. No fever nausea vomiting diarrhea (Al Head) Past History Travel History Traveled to [facility] [place] past 21 day No Medical History Any Pertinent Medical History? 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 No (Al Head) Review of Systems Review of Systems Constitutional: Reports: see HPI. Comments Review of systems: See HPI, All other systems negative. Constitutional, no chills no fever, no malaise no weight loss HEENT: no sore throat no congestion, no ear pain Cardiovascular: No chest pain , no palpitation Skin: no rashes, no change in skin Respiratory: No dyspnea no cough no sputum no hemoptysis GI: No nausea no vomiting, no diarrhea, no bloating/constipation : No dysuria No hematuria, no frequency Muscle skeletal: No joint pain, no back pain, no neck pain, Neurologic: , no headache Psych: No stress no depression,. Heme/endocrine: No bruising no bleeding Immunology: No lymphadenopathy (Al Head) Physical Exam Physical Exam General Appearance: well developed/nourished, no apparent distress, alert Gastrointestinal: soft Comments: Well-developed well-nourished person in no acute distress HEENT: Normal EENT exam; PERRL, EOMI. HEAD is atraumatic. moist mucous membranes. Neck: Supple, normal range of motion Back: Nontender, no CVA tenderness. Full range of motion Cardiovascular: Regular rate and rhythms no murmurs rub Respiratory: Chest nontender.There were no bony deformities, no asymmetry. No respiratory distress. Patient speaking in full complete sentences. Breath sounds clear to auscultation bilaterally: NO W/R/R Abdomen: Soft, nontender nondistended, no appreciable organomegaly. Normal bowel sounds. No rebound/guarding, No appreciable enlargement of the abdominal aorta, No ascites. Extremity: No edema, full range of motion of extremities Neuro: Alert oriented x3, motor sensory normal. There were no obvious focal neurologic abnormalities. Skin: No appreciable rash on exposed skin, skin is warm and dry. Psych: Mood and affect is normal, memory and judgment is normal. Core Measures ACS in differential dx? No Sepsis Present: No Sepsis Focused Exam Completed? No (Al Head) Progress Differential Diagnosis: appendicitis, biliary colic, bowel obstruction, colon cancer, cholecystitis, diverticulitis, gastritis, hepatitis, hernia, inflamm bowel dis, kidney stone, peptic ulcer, perforated viscous, SBO Plan of Care: Orders Procedure Date/time Status URINALYSIS 03/25 1713 Complete COMPREHENSIVE METABOLIC PANEL 03/25 1712 Complete CBC WITHOUT DIFFERENTIAL 03/25 1712 Complete Laboratory Tests 03/25/18 1845: Anion Gap 8, Estimated GFR 47 L, BUN/Creatinine Ratio 10.0, Glucose 82, Calcium 9.3, Total Bilirubin 0.5, AST 11 L, ALT 17, Alkaline Phosphatase 61, Total Protein 5.8 L, Albumin 3.3 L, Globulin 2.5, Albumin/Globulin Ratio 1.3, CBC w Diff NO MAN DIFF REQ, RBC 4.13 L, MCV 94.1, MCH 31.1 H, MCHC 33.1, RDW 14.9 H , MPV 9.3, Gran % 66.8, Lymphocytes % 24.9, Monocytes % 5.0, Eosinophils % 2.7, Basophils % 0.6, Absolute Granulocytes 4.1, Absolute Lymphocytes 1.5, Absolute Monocytes 0.3, Absolute Eosinophils 0.2, Absolute Basophils 0 03/25/18 1820: Urine Color ICTRC H, Urine Clarity HAZY H, Urine pH 6.0, Ur Specific [place] 1.020, Urine Protein TRACE H, Urine Ketones TRACE H, Urine Nitrite POS H, Urine Bilirubin NEG@ICTO, Urine Urobilinogen 1.0, Ur Leukocyte Esterase SMALL H , Ur Microscopic SEDIMENT EXAMINED, Urine RBC 10-15 H, Urine WBC 1-3 H, Ur Epithelial Cells MANY H, Urine Bacteria MANY H, Urine Hemoglobin MOD H, Urine Glucose NEG Labs ordered old records reviewed including the patient's urine culture from earlier this week. 1914 Dom reports to feeling improved pending labs 03/25/2018 7:41:38 PM I discussed with the Dom at length her results. Her pain has resolved she is feeling improved no nausea. She reports the Flexeril helps her when she was here the other day, I offered her stronger pain medication with the understanding at the Flexeril is only a muscle relaxer which she declined. Cipro will be provided as well the urine culture from 4 days ago showed no growth. I had an extensive conversation regarding need for close follow up with their primary care physician/urology this week as well as return precautions. I answered all of their questions, they feel comfortable with the plan and follow- up care. I discussed with the patient the medications that they will receive. I gave them signs and symptoms that could indicate an adverse reaction. I have advised them to limit their activities until they can see how they respond to the medication. Diagnostic Imaging: Viewed by Me: CT Scan. Discussed w/RAD: CT Scan. Radiology Impression: PATIENT: DOM RAE PRESENT AGE: 57 PATIENT ACCOUNT NO: [id number] : 62 LOCATION: [facility] ORDERING PHYSICIAN: Al LOMELI SERVICE DATE: 03/25/18 EXAM TYPE: CAT - CT ABD & PELVIS W/O IV CONTRAS EXAMINATION: CT ABDOMEN AND PELVIS WITHOUT CONTRAST CLINICAL INFORMATION: Abdominal pain. COMPARISON: 09/15/2015 TECHNIQUE: Multidetector volumetric imaging was performed from the superior aspect of the liver through the pubic symphysis. Sagittal and coronal reformatted images were obtained on the technologist's workstation. DLP: 323.72 mGy-cm FINDINGS: LUNG BASES: Limited images of lower thorax demonstrate mild atelectatic changes at the lung bases bilaterally. Noncontrast images of the abdomen and pelvis demonstrate: LIVER, GALLBLADDER, AND BILIARY TREE: The liver is normal in size, shape, and attenuation. No biliary ductal dilatation is present. The gallbladder is unremarkable with no evidence of radiopaque gallstones, gallbladder wall thickening, or obvious pericholecystic inflammatory changes. PANCREAS: Unremarkable. SPLEEN: Unremarkable. ADRENAL GLANDS: Unremarkable. KIDNEYS AND URETERS: The kidneys are normal in size, shape. There are numerous calcific densities in both kidneys, along the corticomedullary junction. The calcifications most likely represent a combination of renal stones with changes of nephrocalcinosis. The largest stone measures about 0.7 cm and is located in mid part of the left kidney. Axial image 38 from series 2. There is no hydronephrosis. No perinephric fat stranding. The ureters are not dilated. No ureter stone. The urinary bladder is empty. There are multiple pelvic phleboliths. GASTROINTESTINAL TRACT: The small and large bowel are unremarkable. The appendix is visualized. The lumen of the appendix contains dense material, representing appendicolith. There are no periappendiceal inflammatory changes to suggest acute appendicitis. ABDOMINAL WALL: No significant hernia is appreciated. LYMPH NODES: Normal. VASCULAR: Atherosclerotic calcifications of the abdominal aorta noted. No aneurysmal dilatation. PELVIC VISCERA: The uterus is not present, prior hysterectomy. No large adnexal mass. OSSEOUS STRUCTURES: Multilevel degenerative changes of the lumbar spine, particularly at L3-L4 and L5-S1 and T12-L1 levels noted. IMPRESSION: Numerous bilateral calcific densities in both kidneys, predominantly at the corticomedullary junction. The calcifications represent a combination of renal stones in addition to changes of nephrocalcinosis. Clinical and lab correlation is suggested. The largest stone measures about 0.7 cm in mid part of the left kidney without evidence of obstruction. DICTATED BY: Promise Grant MD DATE/TIME DICTATED:03/25/181802 PANEL WIRER:BRANDON DATE/TIME TRANSCRIBED:03/25/181802 CONFIDENTIAL, DO NOT COPY WITHOUT APPROPRIATE AUTHORIZATION. <Electronically signed in Other Vendor System> SIGNED BY: Promise Grant MD 03/25/18 1570 Initial ED EKG: none (Al Head) Departure Departure Time of Disposition: 1939 Disposition: HOME OR SELF CARE Condition: Stable Clinical Impression Primary Impression: Abdominal pain Secondary Impressions: Back pain, Renal stone Referrals: Glenn HUERTA,Serina Mandel MD,Myl (PCP/Family) Additional Instructions: FOLLOW UP WITH UROLOGIST DR KHAN WELL YOUR PMD NEXT WEEK. FLEXERIL DIRECTED. CONTINUE TAKING IBUPROFEN FOR PAIN. CIPRO FOR UTI. RETURN WITH ANY CONCERNS Departure Forms: Customer Survey General Discharge Information Prescriptions: Current Visit Scripts Ciprofloxacin HCl (Cipro) 1 TAB PO BID #14 TAB Cyclobenzaprine HCl 1 TAB PO TIDPRN PRN PAIN #10 TAB (Al Head) PA/SUBSURFACE AUGMENTEE OPERATOR Co-Sign Statement Statement: ED Attending supervision documentation- [] I saw and evaluated the patient. I have also reviewed all the pertinent lab results and diagnostic results. I agree with the findings and the plan of care as documented in the PA's/SUBSURFACE AUGMENTEE OPERATOR's documentation. [X] I have reviewed the ED Record and agree with the PA's/SUBSURFACE AUGMENTEE OPERATOR's documentation. [] Additions or exceptions (if any) to the PAs/SUBSURFACE AUGMENTEE OPERATOR's note and plan are summarized below: [] (Gayle HUERTA,Jeb Travis)
--- NOTE | 2018-03-25 18:40 | CT SCAN REPORT ---
EXAMINATION: CT ABDOMEN AND PELVIS WITHOUT CONTRAST CLINICAL INFORMATION: Abdominal pain. COMPARISON: 09/15/2015 TECHNIQUE: Multidetector volumetric imaging was performed from the superior aspect of the liver through the pubic symphysis. Sagittal and coronal reformatted images were obtained on the technologist's workstation. DLP: 323.72 mGy-cm FINDINGS: LUNG BASES: Limited images of lower thorax demonstrate mild atelectatic changes at the lung bases bilaterally. Noncontrast images of the abdomen and pelvis demonstrate: LIVER, GALLBLADDER, AND BILIARY TREE: The liver is normal in size, shape, and attenuation. No biliary ductal dilatation is present. The gallbladder is unremarkable with no evidence of radiopaque gallstones, gallbladder wall thickening, or obvious pericholecystic inflammatory changes. PANCREAS: Unremarkable. SPLEEN: Unremarkable. ADRENAL GLANDS: Unremarkable. KIDNEYS AND URETERS: The kidneys are normal in size, shape. There are numerous calcific densities in both kidneys, along the corticomedullary junction. The calcifications most likely represent a combination of renal stones with changes of nephrocalcinosis. The largest stone measures about 0.7 cm and is located in mid part of the left kidney. Axial image 38 from series 2. There is no hydronephrosis. No perinephric fat stranding. The ureters are not dilated. No ureter stone. The urinary bladder is empty. There are multiple pelvic phleboliths. GASTROINTESTINAL TRACT: The small and large bowel are unremarkable. The appendix is visualized. The lumen of the appendix contains dense material, representing appendicolith. There are no periappendiceal inflammatory changes to suggest acute appendicitis. ABDOMINAL WALL: No significant hernia is appreciated. LYMPH NODES: Normal. VASCULAR: Atherosclerotic calcifications of the abdominal aorta noted. No aneurysmal dilatation. PELVIC VISCERA: The uterus is not present, prior hysterectomy. No large adnexal mass. OSSEOUS STRUCTURES: Multilevel degenerative changes of the lumbar spine, particularly at L3-L4 and L5-S1 and T12-L1 levels noted. IMPRESSION: Numerous bilateral calcific densities in both kidneys, predominantly at the corticomedullary junction. The calcifications represent a combination of renal stones in addition to changes of nephrocalcinosis. Clinical and lab correlation is suggested. The largest stone measures about 0.7 cm in mid part of the left kidney without evidence of obstruction.
[2018-03-25 19:07] LABS: ABSOLUTE BASOPHIL COUNT 0 /CUMM (0.0-0.2); ABSOLUTE EOSINOPHIL COUNT 0.2 /CUMM (0.0-0.7); ABSOLUTE GRANULOCYTE CT 4.1 /CUMM (1.4-6.5); ABSOLUTE LYMPH COUNT 1.5 /CUMM (1.2-3.4); ABSOLUTE MONOCYTE COUNT 0.3 /CUMM (0.10-0.60); BASOPHIL % 0.6 % (0.0-2.0); EOSINOPHIL % 2.7 % (0-5); GRANULOCYTE % 66.8 % (42.2-75.2); HEMATOCRIT 38.9 % (37-47); MEAN CORPUSCULAR HGB 31.1 PG (27.0-31.0); MEAN CORPUSCULAR HGB CONC 33.1 G/DL (33.0-37.0); MEAN CORPUSCULAR VOLUME 94.1 FL (81.0-99.0); MEAN PLATELET VOLUME 9.3 FL (7.4-10.4); PLATELET COUNT 158 /CUMM (130-400); RBC DISTRIBUTION WIDTH 14.9 % (11.5-14.5); RED BLOOD CELL CT 4.13 /CUMM (4.20-5.40); WHITE BLOOD CELL COUNT 6.2 /CUMM (4.8-10.8)
[2018-03-25] MEDS ORDERED: CIPRO500 M1 PO (19:41)
[2018-03-25] MEDS ORDERED: CYCLOBENZAPRINE5 M2 PO (19:41)
[2018-03-25 19:57] VITALS: BP 124/78
== END 2018-03-25 19:58 ==
LOC: ERH 17:07
PROVIDERS: Physician Assistant Medical
DX: N20.0 Calculus of kidney (principal)
CPT/HCPCS: 74176; 81001; 96374; J0131

== ENCOUNTER 2018-03-27 07:11 | Emergency (ER) | payer OTHER, MEDICARE ==
[~2018-03-27] VITALS: Ht 172.7 cm; Wt 72.6 kg
[~2018-03-27 07:11] MED LIST changes: +CIPRO500 M1 PO
[2018-03-27 07:14] VITALS: BP 138/93
--- NOTE | 2018-03-27 07:48 | ED GI/GU/ABDOMINAL COMPLAINT ---
History of Present Illness General Chief Complaint: Abdominal Pain/Flank Pain Stated Complaint: PER PT KIDNEY STONES? ABD PAIN RADIATING INTO LEGS Source: patient, old records Exam Limitations: no limitations Vital Signs & Intake/Output Vital Signs & Intake/Output Vital Signs Date Time Temp Pulse Resp B/P B/P Pulse O2 O2 Flow FiO2 Mean Ox Delivery Rate 03/27 0807 Room Air Room Air 03/27 0714 96.3 80 16 138/93 96 Room Air Allergies Coded Allergies: buspirone (From BUSPAR) (Intermediate, PER PT UNKNOWN STATES DOES NOT EXPERIENCE DYSPNEA 10/07/16) bupropion (From WELLBUTRIN) (Mild, JITTERY 03/04/17) PER . -CG 03/04/17 1613 Reconcile Medications Cholecalciferol (Vitamin D3) (Vitamin D) 2,000 UNIT CAPSULE 1 CAP PO DAILY SUPPLEMENT (Reported) Ciprofloxacin HCl (Cipro) 500 MG TABLET 1 TAB PO BID UTI Cyclobenzaprine HCl 5 MG TABLET 1 TAB PO TIDPRN PRN pain Cyclobenzaprine HCl 5 MG TABLET 1 TAB PO TIDPRN PRN PAIN Hyoscyamine Sulfate (Levsin-Sl) 0.125 MG TAB.SUBL 1-2 TAB SL Q4P PRN abdominal cramps Ibuprofen 800 MG TABLET 1 TAB PO TID pain [employer] [facility] Carbonate 300 MG CAPSULE 300 MG PO 0800,1999 mood stabilization Loperamide HCl (Imodium A-D) 2 MG TABLET 0 PO SEE ADMIN CRITERIA PRN diarrhea 1 tab after each loose stool up to 7 per day Methimazole 10 MG TABLET 1 TAB PO DAILY THYROID (Reported) Ondansetron (Zofran Odt) 4 MG TAB.RAPDIS 1 TAB SL TID PRN nausea vomiting Pantoprazole Sodium 40 MG TABLET. 1 TAB PO DAILY GI (Reported) Phenazopyridine HCl (Pyridium) 200 MG TABLET 1 TAB PO TID dysuria Propranolol HCl 20 MG TABLET 1 TAB PO BID TREMORS (Reported) Quetiapine Fumarate (Seroquel) 100 MG TABLET 250 MG PO QPM MENTAL HEALTH ( Reported) Quetiapine Fumarate (Seroquel) 50 MG TABLET 50 MG PO BID clarify thinking Sertraline HCl (Zoloft) 100 MG TABLET 2 TAB PO DAILY MENTAL HEALTH (Reported) Topiramate (Topamax) 100 MG TABLET 1 TAB PO BID MIGRAINES (Reported) Triage Note: 57 Y/O FEMALE C/O "PROFUSE" ABDOMINAL AND LOW BACK PAIN RADIATING DOWN BILATERAL LEGS. STATES SHE HAS KNOWN KIDNEY STONES AND IS TAKING FLEXERIL FOR SAME (LAST DOSE 30 MIN AGO). REPORTS HAVING 1 EPISODE DIARRHEA THIS AM AND WORSENING PAIN SINCE. +NAUSEA. AFEBRILE Triage Nurses Notes Reviewed? yes LMP (ages 10-50): post menopausal ? n Is pt currently ? No Onset: Just prior to arrival Duration: hour(s):, constant, continues in ED Timing: recent history Quality/Severity: aching, moderate Location: generalized abdomen Radiation: back, Legs Activities at Onset: sleep Prior Abdominal Problems: similar symptoms Past Sexual History: Unobtainable at this time No Modifying Factors: none Associated Symptoms: abdominal pain, diarrhea, loss of appetite, nausea/vomiting HPI: 1 day prior to admission patient complains of increasing generalized abdominal discomfort and right flank pain described as crampy waxing and waning radiating to her thighs associated with anorexia nausea loose watery stools. She denies fever chills chest pain cough shortness breath headache dysuria rash bleeding. Past History Travel History Traveled to [place] past 21 day No Medical History Any Pertinent Medical History? 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 No Review of Systems Review of Systems Constitutional: Reports: no symptoms. EENTM: Reports: no symptoms. Respiratory: Reports: no symptoms. Cardiovascular: Reports: no symptoms. GI: Reports: see HPI, abdominal pain, diarrhea, nausea. Genitourinary: Reports: no symptoms. Musculoskeletal: Reports: see HPI, back pain. Skin: Reports: no symptoms. Neurological/Psychological: Reports: no symptoms. Hematologic/Endocrine: Reports: no symptoms. Immunologic/Allergic: Reports: no symptoms. All Other Systems: Reviewed and Negative Physical Exam Physical Exam General Appearance: well developed/nourished, alert, awake, anxious, mild distress, obese Head: atraumatic, normal appearance Eyes: Bilateral: normal appearance, PERRL, EOMI, normal inspection. Ears, Nose, Throat, Mouth: hearing grossly normal, moist mucous membrane Neck: normal inspection, supple, full range of motion, normal alignment Respiratory: normal breath sounds, chest non-tender, no respiratory distress, quiet respiration, lungs clear Cardiovascular: regular rate/rhythm, normal peripheral pulses, norml femoral pulses equa Peripheral Pulses: 4+ carotid (R), 4+ carotid (L) Gastrointestinal: soft, non-tender, no organomegaly, abnormal bowel sounds Back: normal inspection, normal range of motion, no vertebral tenderness Extremities: normal range of motion, no ligament instability Neurologic/Psych: no motor/sensory deficits, awake, alert, oriented x 3, normal gait, 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 No Sepsis Present: No Sepsis Focused Exam Completed? No Progress Differential Diagnosis: biliary colic, gastritis, PUD/GERD Plan of Care: Current Medications Sig/Martin Start time Last Medication Dose Stop Time Status Admin Sodium Chloride 1,000 ML BOLUS ONE 03/27 0745 CAN (Normal Saline 0.9%) 03/27 0844 Laboratory Tests 03/27/18 0742: CBC w Diff Cancelled, WBC Cancelled, RBC Cancelled, Hgb Cancelled, Hct Cancelled , MCV Cancelled, MCH Cancelled, MCHC Cancelled, RDW Cancelled, Plt Count Cancelled, MPV Cancelled, [employer] [facility] Cancelled, Urine Color Cancelled, Urine Clarity Cancelled, Urine pH Cancelled, Ur Specific [place]lin Cancelled, Urine Protein Cancelled, Urine Ketones Cancelled, Urine Nitrite Cancelled, Urine Bilirubin Cancelled, Urine Urobilinogen Cancelled, Ur Leukocyte Esterase Cancelled, Ur Microscopic Cancelled, Urine Hemoglobin Cancelled, Urine Glucose Cancelled Initial ED EKG: none Comments: After ordering diagnostic and therapeutic interventions patient said her discomfort is gone and decided to defer evaluation. Departure Departure Time of Disposition: 754 Disposition: HOME OR SELF CARE Condition: Stable Clinical Impression Primary Impression: Gastroenteritis Referrals: Tequila HUERTA,Myl (PCP/Family) Departure Forms: Customer Survey General Discharge Information Prescriptions: Current Visit Scripts Loperamide HCl (Imodium A-D) 0 PO SEE ADMIN CRITERIA PRN diarrhea #24 TAB 1 tab after each loose stool up to 7 per day Ondansetron (Zofran Odt) 1 TAB SL TID PRN nausea vomiting #10 TAB Hyoscyamine Sulfate (Levsin-Sl) 1-2 TAB SL Q4P PRN abdominal cramps #30 TAB
[2018-03-27] MEDS ORDERED: ZOFRAN ODT4 M1 SL (07:57)
[2018-03-27] MEDS ORDERED: IMODIUM A-D2 M1 PO (07:57)
[2018-03-27] MEDS ORDERED: LEVSIN-SL0.125 MG SL (07:57)
== END 2018-03-27 08:09 ==
LOC: ERH 07:11
DX: K52.9 Noninfective gastroenteritis and colitis, unspecified (principal)
CPT/HCPCS: J1885; J2405

== ENCOUNTER → 2018-04-03 | Day surgery (SDC) | payer OTHER, MEDICARE ==
[~2018-04-03] MED LIST changes: +IMODIUM A-D2 M1 PO; +LEVSIN-SL0.125 MG SL; +ZOFRAN ODT4 M1 SL
--- NOTE | 2018-04-03 08:36 | Operative Report ---
Operative/Inv Procedure Report Surgery Date: 04/03/18 Name of Procedure: LEFT ESWL Pre-Operative Diagnosis: BILATERAL STONES Post-Operative Diagnosis: same Estimated Blood Loss: scant Surgeon/Emergency Medical Technician: Serina Elizabeth MD Anesthesia: local monitored anesthesi Complications: none Condition: stable Operative Indication: left renal colic Operative/Procedure Note Note: 57yo female with a hx of bilateral kidney stones. Patient with left renal colic. She has had ESWL in the past and knows the risks, benefits and alternatives but these were reiterated in the office and holding area. All questions were answered. She has been taking ibuprofen and let her know the increased risk of bleeding with the ESWL because of this intake. She accepts this risk. Patient was taken to the operating room and place on the ESWL room table in the supine position. Timeout was performed. IV antibiotics were given. IV sedation was started after she was optimally positioned. The stones were easily identified on th US imaging and it was also visible on fluoroscopy but less so for picture results. The ESWL was started at power of 1-15 for 500 shocks followed by power of 16-19 for 500 shocks and then power of 20 for 1500 shocks. The stone was visibly changed at the end of the session. Patient tolerated the procedure well. She was transferred to the recovery room in stable condition. Findings: bilateral renal stones on CT and 2 larger stones on US imaging, mid and upper pole about 7-8mm Discharge Disposition: Same Day Admissions
== END ==
LOC: STS 01:00
DX: N20.0 Calculus of kidney (principal); Z87.442 Personal history of urinary calculi; N32.89 Other specified disorders of bladder; R35.0 Frequency of micturition; R31.0 Gross hematuria; E07.9 Disorder of thyroid, unspecified; F17.200 Nicotine dependence, unspecified, uncomplicated
CPT/HCPCS: J0690